=== PATIENT | female | born 1960 | race Caucasian/White ===

== ENCOUNTER → 2017-11-08 | Outpatient (REF) | payer BC ==
[2017-11-08 20:01] LABS: HEMATOCRIT 46.6 % (36.0-47.0); HEMOGLOBIN 15.2 g/dl (12.0-15.5); MEAN CORPUSCULAR HEMOGLOBIN 30.8 pg (27.0-33.0); MEAN CORPUSCULAR HGB CONC 32.6 g/dl (32.0-36.5); MEAN CORPUSCULAR VOLUME 94.5 fl (80.0-96.0); PLATELET COUNT, AUTOMATED 379 10^3/uL (150-450); RED BLOOD COUNT 4.93 10^6/uL (4.00-5.40); RED CELL DISTRIBUTION WIDTH 13.2 % (11.5-14.5); WHITE BLOOD COUNT 15.8 10^3/uL (4.0-10.0)
[2017-11-08 20:35] LABS: TOTAL 25(OH) VITAMIN D 38.6 NG/ML (30.0-100.0)
[2017-11-08 20:36] LABS: FOLATE 6.7 NG/ML; VITAMIN B12 LEVEL 648 PG/ML
[2017-11-08 20:42] LABS: ALBUMIN 4.1 GM/DL (3.2-5.2); ALBUMIN/GLOBULIN RATIO 1.32 (1.00-1.93); ALKALINE PHOSPHATASE 83 U/L (45-117); ALT/SGPT 22 U/L (12-78); ANION GAP 10 MEQ/L (8-16); AST/SGOT 9 U/L (7-37); BILIRUBIN,TOTAL 0.3 MG/DL (0.2-1.0); BLOOD UREA NITROGEN 8 MG/DL (7-18); CALCIUM LEVEL 9.3 MG/DL (8.5-10.1); CARBON DIOXIDE LEVEL 27 MEQ/L (21-32); CHLORIDE LEVEL 104 MEQ/L (98-107); CREATININE FOR GFR 0.71 MG/DL (0.55-1.30); FREE T4 1.08 NG/DL (0.76-1.46); GLOMERULAR FILTRATION RATE > 60.0 (>51); GLUCOSE, FASTING 100 MG/DL (70-100); POTASSIUM SERUM 3.9 MEQ/L (3.5-5.1); SODIUM LEVEL 141 MEQ/L (136-145); THYROID STIMULATING HORMONE 0.877 uIU/ML (0.358-3.740); TOTAL PROTEIN 7.2 GM/DL (6.4-8.2)
[2017-11-10 10:13] LABS: TISSUE TRANSGLUTAMINASE IgA <2 U/mL (0-3)
== END ==
LOC: M SFHCADAM 15:11
DX: K52.9 Noninfective gastroenteritis and colitis, unspecified (principal); F17.218 Nicotine dependence, cigarettes, with other nicotine-induced disorders; E03.9 Hypothyroidism, unspecified; F32.9 Major depressive disorder, single episode, unspecified; F10.10 Alcohol abuse, uncomplicated
CPT/HCPCS: 82746

== ENCOUNTER 2017-11-27 14:07 | Emergency (ER) | payer BC ==
[2017-11-27 15:33] LABS: BASO % 0.2 % (0.0-1.0); EOS # 0.1 10^3/uL (0.0-0.50); HEMATOCRIT 48.4 % (36.0-47.0); HEMOGLOBIN 16.1 g/dl (12.0-15.5); IMMATURE GRANULOCYTE % 0.7 % (0-3.0); LYMPH # 2.6 10^3/uL (1.5-4.5); LYMPH % 21.4 % (24.0-44.0); MEAN CORPUSCULAR HEMOGLOBIN 31.2 pg (27.0-33.0); MEAN CORPUSCULAR HGB CONC 33.3 g/dl (32.0-36.5); MEAN CORPUSCULAR VOLUME 93.8 fl (80.0-96.0); MONO # 0.8 10^3/uL (0.0-0.8); MONO % 6.3 % (0.0-5.0); NEUTROPHILS # 8.6 10^3/uL (1.8-7.7); NEUTROPHILS % 70.4 % (36.0-66.0); PLATELET COUNT, AUTOMATED 340 10^3/uL (150-450); RED BLOOD COUNT 5.16 10^6/uL (4.00-5.40); RED CELL DISTRIBUTION WIDTH 12.9 % (11.5-14.5); WHITE BLOOD COUNT 12.2 10^3/uL (4.0-10.0)
[2017-11-27 15:43] LABS: INR 0.99; PROTHROMBIN TIME 13.2 SECONDS (12.1-14.4)
[2017-11-27 15:44] LABS: PARTIAL THROMBOPLASTIN TIME 27.2 SECONDS (25.4-37.6)
[2017-11-27 15:47] LABS: ALBUMIN 4.3 GM/DL (3.2-5.2); ALBUMIN/GLOBULIN RATIO 1.34 (1.00-1.93); ALKALINE PHOSPHATASE 81 U/L (45-117); ALT/SGPT 24 U/L (12-78); ANION GAP 8 MEQ/L (8-16); AST/SGOT 16 U/L (7-37); BILIRUBIN,DIRECT 0.2 MG/DL (0.0-0.2); BILIRUBIN,TOTAL 0.6 MG/DL (0.2-1.0); BLOOD UREA NITROGEN 9 MG/DL (7-18); CALCIUM LEVEL 9.5 MG/DL (8.5-10.1); CARBON DIOXIDE LEVEL 28 MEQ/L (21-32); CHLORIDE LEVEL 102 MEQ/L (98-107); CK-MB VALUE MASS < 1.0 NG/ML (<3.6); CPK CREATINE PHOSPHOKINASE 58 U/L (26-192); CREATININE FOR GFR 0.72 MG/DL (0.55-1.30); FREE T4 1.38 NG/DL (0.76-1.46); GLOMERULAR FILTRATION RATE > 60.0 (>51); GLUCOSE, FASTING 113 MG/DL (70-100); MB/CK RELATIVE INDEX 1.72 (< OR =4); NT-PRO BNP 33 PG/ML (<125); POTASSIUM SERUM 3.6 MEQ/L (3.5-5.1); SODIUM LEVEL 138 MEQ/L (136-145); TOTAL PROTEIN 7.5 GM/DL (6.4-8.2); TROPONIN I < 0.02 NG/ML (< 0.10)
[2017-11-27 15:56] LABS: D-DIMER QUANT < 270.0 ng/ml (<500)
[2017-11-27 17:11] LABS: CPK CREATINE PHOSPHOKINASE 48 U/L (26-192); TROPONIN I < 0.02 NG/ML (< 0.10)
[2017-11-27 17:12] LABS: CK-MB VALUE MASS < 1.0 NG/ML (<3.6); MB/CK RELATIVE INDEX 2.08 (< OR =4)
== END 2017-11-27 18:34 | disposition home or self-care (01) ==
LOC: M ED 14:07
DX: R07.9 Chest pain, unspecified (principal); F41.9 Anxiety disorder, unspecified; F32.9 Major depressive disorder, single episode, unspecified; E03.9 Hypothyroidism, unspecified; J44.9 Chronic obstructive pulmonary disease, unspecified; F17.210 Nicotine dependence, cigarettes, uncomplicated; Z91.048 Other nonmedicinal substance allergy status
CPT/HCPCS: 71046

== ENCOUNTER → 2018-05-12 | Outpatient (REF) | payer BC | LOC: M LAB REF 12:25 | PROVIDERS: ATTEND Physician Assistant Medical | DX: J02.9 Acute pharyngitis, unspecified (principal) ==

== ENCOUNTER 2018-12-13 10:33 | Day surgery (SDC) | payer OTHER ==
[~2018-12-13] VITALS: Ht 160 cm; Wt 61.7 kg
[~2018-12-13 10:33] MED LIST: ACETAMINOPHEN 325 MG TAB PO PRN; ADV100INH INH; BALANCED SALT IRRIGATION SOLUTION 500ML BAG (FOR OR EYE MACHINE) As Ordered ONE; BSS with VANC/TOB/EPI for EYE CASES IR ONE; CEFUROXIME 1MG/0.1ML INTRACAMERAL INJ As Ordered ONE; CYCLOPENTOLATE 2% OPHTH SOLN 2ML BTL OD ONE; HEALON DUET PRO(HEALON 10MG/ML 0.55ML & HEALON ENDOCOAT 30MG/ML 0.85ML) As Ordered ONE; LEVO112T2 PO; LIDOCAINE 1% SDV 5 ML VIAL As Ordered ONE; LIDOCAINE 3.5 % 1ML OPHTH TOPICAL GEL OU ONE; MIDAZOLAM INJ 2 MG/2 ML VIAL (J2250) As Ordered ONE; OFLOXACIN 0.3 % (OCUFLOX) OPTH SOL 5ML OD ONE; PHENYLEPHRINE 2.5% OPHTH SOL 2ML OD ONE; PHENYLEPHRINE HCL 10 % OPHTH. SOL 5ML OD PRN; POVIDONE-IODINE 5% OPHTH PREP SOL 30ML As Ordered ONE; PROAAER10 INH; PROPARACAINE 0.5% OPHTH SOL 15ML OD PRN; TROPICAMIDE 1% OPHTH SOLN 2ML OD ONE; VITA1CAP25 PO; fentaNYL 100 MCG/2 ML INJECTION (J3010) As Ordered ONE
[2018-12-13] MEDS ORDERED: AcetaZOLAMIDE 500 MG ER CAP As Ordered ONE (11:47)
[2018-12-13] MEDS ORDERED: PROPARACAINE 0.5% OPHTH SOL 15ML As Ordered ONE (11:48)
[2018-12-13 11:55] VITALS: BP 145/70
[2018-12-13] MEDS ORDERED: AcetaZOLAMIDE 500 MG ER CAP PO ONE (12:15)
[2018-12-13] MEDS ORDERED: TRIMETHOBENZAMIDE 300 MG CAP PO PRN (12:15)
[2018-12-13] MEDS ORDERED: KETOROLAC 0.5% OPHTH SOLN OD ONE (12:15)
[2018-12-13] MEDS ORDERED: ONDANSETRON 4MG/2ML VIAL (J2405) IV PRN (12:15)
--- NOTE | 2018-12-13 12:35 | RO ---
DATE OF PROCEDURE: 12/13/2018 PREPROCEDURE DIAGNOSIS: Age related nuclear cataract, right eye. POSTPROCEDURE DIAGNOSIS: Age related nuclear cataract, right eye. PROCEDURE: Phacoemulsification and posterior chamber intraocular lens implantation of the right eye. The lens used was AU00T0, 26.0 diopter. SURGEON: Jaylin Villanueva MD [employer]: ANESTHESIA: Topical with sedation. DESCRIPTION OF PROCEDURE: The patient was prepped and draped in the usual fashion. A lid speculum was placed between the lids. The eye was fixated. A stab incision was made to the anterior chamber, and 1% nonpreserved lidocaine was instilled. Then, viscoelastic was instilled. The eye was re-fixated. A 2.75 mm sapphire keratome was used to make a clear corneal temporal limbal incision. Capsulorrhexis was begun with a 30-gauge bent needle and then carried out in a circular fashion with capsulorrhexis forceps. The lens was hydrodissected, and then the phacoemulsification unit was used to make a groove in the nucleus in two meridians. The nucleus was then cracked into four quadrants. Each quadrant was removed with the phacoemulsification unit. Any remaining cortex was removed with the irrigation and aspiration (I and A) unit. Capsular bag was refilled with viscoelastic. A posterior chamber intraocular lens was placed in the capsular bag without difficulty. Any remaining viscoelastic was removed with the I and A unit. The wound was hydrated, and Miochol and cefuroxime were instilled into the anterior chamber. The patient tolerated the procedure well and went to the recovery room in stable condition.
== END 2018-12-13 12:05 | disposition home or self-care (01) ==
LOC: M SDC 10:33
PROVIDERS: ATTEND Ophthalmology
DX: H25.11 Age-related nuclear cataract, right eye (principal); E03.9 Hypothyroidism, unspecified; J44.9 Chronic obstructive pulmonary disease, unspecified; Z79.899 Other long term (current) drug therapy; Z79.51 Long term (current) use of inhaled steroids; F17.210 Nicotine dependence, cigarettes, uncomplicated
CPT/HCPCS: 66984; 92015; J2250; J3010; V2632

== ENCOUNTER → 2019-10-29 | Outpatient (REF) | payer OTHER ==
[~2019-10-29] MED LIST changes: -ACETAMINOPHEN 325 MG TAB PO PRN; -BALANCED SALT IRRIGATION SOLUTION 500ML BAG (FOR OR EYE MACHINE) As Ordered ONE; -BSS with VANC/TOB/EPI for EYE CASES IR ONE; -CEFUROXIME 1MG/0.1ML INTRACAMERAL INJ As Ordered ONE; -CYCLOPENTOLATE 2% OPHTH SOLN 2ML BTL OD ONE; -HEALON DUET PRO(HEALON 10MG/ML 0.55ML & HEALON ENDOCOAT 30MG/ML 0.85ML) As Ordered ONE; -LIDOCAINE 1% SDV 5 ML VIAL As Ordered ONE; -LIDOCAINE 3.5 % 1ML OPHTH TOPICAL GEL OU ONE; -MIDAZOLAM INJ 2 MG/2 ML VIAL (J2250) As Ordered ONE; -OFLOXACIN 0.3 % (OCUFLOX) OPTH SOL 5ML OD ONE; -PHENYLEPHRINE 2.5% OPHTH SOL 2ML OD ONE; -PHENYLEPHRINE HCL 10 % OPHTH. SOL 5ML OD PRN; -POVIDONE-IODINE 5% OPHTH PREP SOL 30ML As Ordered ONE; -PROPARACAINE 0.5% OPHTH SOL 15ML OD PRN; -TROPICAMIDE 1% OPHTH SOLN 2ML OD ONE; -fentaNYL 100 MCG/2 ML INJECTION (J3010) As Ordered ONE
[2019-10-29 13:31] LABS: BASO # 0.1 10^3/uL (0.0-0.2); BASO % 0.4 % (0.0-1.0); EOS # 0.1 10^3/uL (0.0-0.5); EOS % 0.6 % (0.0-3.0); HEMATOCRIT 49.8 % (36.0-47.0); HEMOGLOBIN 16.4 g/dl (12.0-15.5); LYMPH # 3.1 10^3/uL (1.5-5.0); LYMPH % 23.4 % (24.0-44.0); MEAN CORPUSCULAR HEMOGLOBIN 31.2 pg (27.0-33.0); MEAN CORPUSCULAR HGB CONC 32.9 g/dl (32.0-36.5); MEAN CORPUSCULAR VOLUME 94.7 fl (80.0-96.0); MONO # 0.7 10^3/uL (0.0-0.8); MONO % 5.4 % (0.0-5.0); NEUTROPHILS # 9.1 10^3/uL (1.5-8.5); NEUTROPHILS % 69.7 % (36.0-66.0); PLATELET COUNT, AUTOMATED 437 10^3/uL (150-450); RED BLOOD COUNT 5.26 10^6/uL (4.00-5.40); WHITE BLOOD COUNT 13.1 10^3/uL (4.0-10.0)
[2019-10-29 14:37] LABS: ALBUMIN 4.5 GM/DL (3.2-5.2); ALT/SGPT 26 U/L (12-78); BILIRUBIN,TOTAL 0.5 MG/DL (0.2-1.0); BLOOD UREA NITROGEN 9 MG/DL (7-18); CALCIUM LEVEL 10.1 MG/DL (8.5-10.1); CARBON DIOXIDE LEVEL 28 MEQ/L (21-32); CHLORIDE LEVEL 102 MEQ/L (98-107); CHOLESTEROL LEVEL 228 MG/DL (<200); CHOLESTEROL RISK RATIO 3.123 (<5); CREATININE FOR GFR 0.68 MG/DL (0.55-1.30); GLOMERULAR FILTRATION RATE > 60.0 (>51); GLUCOSE, FASTING 74 MG/DL (70-100); HDL CHOLESTEROL 73 MG/DL (>40); LDL CHOLESTEROL 121 MG/DL (<100); NON-HDL-C 155 MG/DL; POTASSIUM SERUM 4.5 MEQ/L (3.5-5.1); PROLACTIN 2.3 NG/ML; SODIUM LEVEL 137 MEQ/L (136-145); TOTAL 25(OH) VITAMIN D 75.9 NG/ML (30.0-100.0); TOTAL PROTEIN 8.1 GM/DL (6.4-8.2); TRIGLYCERIDES LEVEL 169 MG/DL (<150)
== END ==
LOC: M SFHCADAM 09:58
PROVIDERS: ATTEND Physician Assistant Medical
DX: N64.4 Mastodynia (principal); N64.3 Galactorrhea not associated with childbirth; E03.9 Hypothyroidism, unspecified; E78.2 Mixed hyperlipidemia; E55.9 Vitamin D deficiency, unspecified

== ENCOUNTER → 2019-11-15 | Outpatient (CLI) | payer OTHER ==
--- NOTE | 2019-11-15 08:12 | REPMRS ---
Patient History The patient states she had a clinical breast exam in October 2019. Patient is postmenopausal. Family history of breast cancer at age 46 in sister. Benign excisional biopsy of the right breast, 1982. Took hormonal contraceptives for 12 years. Took unspecified hormones for 1 year. Diagnostic Bilateral Mammo: November 15, 2019 - Exam #: [id number] Bilateral CC and MLO view(s) were taken. Technologist: Radha Rocha, Technologist Prior study comparison: April 13, 2016, digital woman screen mammo performed at [facility]. November 11, 2011, bilateral bilat screen digital mammo, performed at [facility] September 30, 2009, bilateral screening mammogram, performed at [facility]. FINDINGS: The breast tissue is heterogeneously dense. This may lower the sensitivity of mammography. The Volpara volumetric breast density category is: C. There is a moderate amount of heterogeneously dense fibroglandular tissue which is fairly symmetric. There is no interval development of dominant mass, architectural distortion, or grouped microcalcification typical of malignancy. There has been no change in the appearance of the mammogram from the prior studies. 3-D tomosynthesis shows no additional findings. Assessment: BI-RADS/ACR category 1 mammogram. Negative Mammogram. Recommendation Routine screening mammogram of both breasts in 1 year (for women over age 40). This patient's Lifetime Breast Cancer RIsk is estimated at 12.7 %. This mammogram was interpreted with the aid of an FDA-approved computer-aided dectection system. Electronically Signed By: Kj Chavez MD 11/15/19 08
== END ==
LOC: M WHC 06:47
PROVIDERS: ATTEND Physician Assistant Medical
DX: N64.4 Mastodynia (principal); N64.3 Galactorrhea not associated with childbirth; Z80.3 Family history of malignant neoplasm of breast
CPT/HCPCS: 77066; G0279

== ENCOUNTER → 2021-06-29 | Outpatient (REF) | payer OTHER | LOC: M SFHCADAM 09:06 | PROVIDERS: ATTEND Physician Assistant Medical | DX: Z12.11 Encounter for screening for malignant neoplasm of colon (principal); Z12.12 Encounter for screening for malignant neoplasm of rectum; E03.9 Hypothyroidism, unspecified ==

== ENCOUNTER → 2022-01-06 | Outpatient (REF) | payer OTHER ==
[2022-01-06 14:45] LABS: FREE T4 1.43 NG/DL (0.76-1.46); THYROID STIMULATING HORMONE 0.239 uIU/ML (0.358-3.740)
== END ==
LOC: M SFHCADAM 09:50
PROVIDERS: ATTEND Physician Assistant Medical
DX: E03.9 Hypothyroidism, unspecified (principal)

== ENCOUNTER → 2022-01-27 | Outpatient (CLI) | payer OTHER | LOC: M WHC 12:31 | PROVIDERS: ATTEND Physician Assistant Medical | DX: R13.13 Dysphagia, pharyngeal phase (principal); R09.89 Other specified symptoms and signs involving the circulatory and respiratory systems ==

== ENCOUNTER → 2022-02-19 | Outpatient (REF) | payer OTHER ==
[2022-02-19 14:27] LABS: C REACTIVE PROTEIN QUANTITATIV < 0.30 MG/DL (0.00-0.30); COMPLEMENT C3 98 MG/DL (90-180); COMPLEMENT C4 26 MG/DL (10-40); FREE T4 1.55 NG/DL (0.76-1.46); RHEUMATOID FACTOR QUANT < 10.0 IU/ML (<15.0); THYROID STIMULATING HORMONE 0.707 uIU/ML (0.358-3.740)
[2022-02-19 14:56] LABS: TOTAL 25(OH) VITAMIN D 62.3 NG/ML (30.0-100.0)
[2022-02-19 14:59] LABS: THYROID PEROXIDASE ANTIBODY 727.9 U/ML (<60.0)
== END ==
LOC: M SFHCDERM 09:17
PROVIDERS: ATTEND Physician Assistant Medical
DX: E03.9 Hypothyroidism, unspecified (principal); M25.50 Pain in unspecified joint

== ENCOUNTER → 2022-03-11 | Outpatient (REF) | payer OTHER ==
[2022-03-11 14:22] LABS: BASO % 0.2 % (0.0-1.0); EOS % 0.3 % (0.0-3.0); HEMATOCRIT 48.2 % (36.0-47.0); HEMOGLOBIN 16.2 g/dl (12.0-15.5); LYMPH # 2.2 10^3/uL (1.5-5.0); LYMPH % 24.7 % (24.0-44.0); MEAN CORPUSCULAR HEMOGLOBIN 30.4 pg (27.0-33.0); MEAN CORPUSCULAR HGB CONC 33.6 g/dl (32.0-36.5); MEAN CORPUSCULAR VOLUME 90.4 fl (80.0-96.0); MONO # 0.8 10^3/uL (0.0-0.8); MONO % 9.1 % (2.0-8.0); NEUTROPHILS # 5.8 10^3/uL (1.5-8.5); NEUTROPHILS % 65.4 % (36.0-66.0); PLATELET COUNT, AUTOMATED 430 10^3/uL (150-450); RED BLOOD COUNT 5.33 10^6/uL (4.00-5.40); WHITE BLOOD COUNT 8.8 10^3/uL (4.0-10.0)
[2022-03-11 14:51] LABS: HEMOGLOBIN A1c 5.5 %
[2022-03-11 15:37] LABS: ALBUMIN 4.1 GM/DL (3.2-5.2); ALT/SGPT 23 U/L (12-78); BILIRUBIN,TOTAL 0.8 MG/DL (0.2-1.0); BLOOD UREA NITROGEN 4 MG/DL (7-18); CALCIUM LEVEL 9.7 MG/DL (8.8-10.2); CARBON DIOXIDE LEVEL 28 MEQ/L (21-32); CHLORIDE LEVEL 89 MEQ/L (98-107); CHOLESTEROL LEVEL 195 MG/DL (<200); CHOLESTEROL RISK RATIO 2.785 (<5); CREATININE FOR GFR 0.55 MG/DL (0.55-1.30); GLOMERULAR FILTRATION RATE > 60.0 (>45); GLUCOSE, FASTING 108 MG/DL (70-100); HDL CHOLESTEROL 70 MG/DL (>40); LDL CHOLESTEROL 108 MG/DL (<100); NON-HDL-C 125 MG/DL; POTASSIUM SERUM 4.1 MEQ/L (3.5-5.1); SODIUM LEVEL 127 MEQ/L (136-145); TOTAL PROTEIN 7.1 GM/DL (6.4-8.2); TRIGLYCERIDES LEVEL 87 MG/DL (<150)
[2022-03-11 16:01] LABS: VITAMIN B12 LEVEL 333 PG/ML (247-911)
== END ==
LOC: M SFHCADAM 11:27
PROVIDERS: ATTEND Physician Assistant Medical
DX: R20.2 Paresthesia of skin (principal); E03.9 Hypothyroidism, unspecified

== ENCOUNTER → 2022-04-21 | Outpatient (REF) | payer OTHER ==
[2022-04-21 17:13] LABS: FREE T4 1.71 NG/DL (0.89-1.76); THYROID STIMULATING HORMONE 14.724 uIU/ML (0.55-4.78)
== END ==
LOC: M SFHCADAM 13:23
PROVIDERS: ATTEND Physician Assistant Medical
DX: E03.9 Hypothyroidism, unspecified (principal)

== ENCOUNTER → 2022-05-26 | Outpatient (CLI) | payer OTHER | LOC: M PLARAD 09:24 | PROVIDERS: ATTEND Physician Assistant Medical | DX: R91.1 Solitary pulmonary nodule (principal) | CPT/HCPCS: 78815; A9552 ==

== ENCOUNTER → 2022-05-27 | Outpatient (CLI) | payer OTHER ==
[~2022-05-27] MED LIST changes: +ALBU2.5V10; +ALBU8.5H; +FOLI1TAB11; +GABA-282; +OMEP40CA5
== END ==
LOC: M LABSMTC 11:37
PROVIDERS: ATTEND Anesthesiology
DX: Z01.818 Encounter for other preprocedural examination (principal); Z11.52 Encounter for screening for COVID-19

== ENCOUNTER 2022-05-31 10:34 | Day surgery (SDC) | payer OTHER ==
[~2022-05-31] VITALS: Ht 162.6 cm; Wt 43.7 kg
[~2022-05-31 10:34] MED LIST changes: -ALBU2.5V10; +ALBU2.5V10 NEB; -ALBU8.5H; +ALBU8.5H INH; -FOLI1TAB11; +FOLI1TAB11 PO; -GABA-282; +GABA-282 PO; +NS 1,000 ML IV ONE; -OMEP40CA5; +OMEP40CA5 PO
[2022-05-31] MEDS ORDERED: propofoL 200 MG/20 ML VIAL As Ordered ONE (12:19)
[2022-05-31] MEDS ORDERED: LIDOCAINE 2% 100MG/5ML SDV (FOR ANES.) As Ordered ONE (12:19)
[2022-05-31 13:06] VITALS: BP 125/64
[2022-06-07] MEDS ORDERED: LEVO88TA3 PO (08:03)
[2022-06-07] MEDS ORDERED: KP BTAB PO (08:03)
== END 2022-05-31 13:26 | disposition home or self-care (01) ==
LOC: M OPP 10:34
PROVIDERS: ATTEND Internal Medicine Gastroenterology
DX: D12.1 Benign neoplasm of appendix (principal); D12.2 Benign neoplasm of ascending colon; D12.7 Benign neoplasm of rectosigmoid junction; K64.4 Residual hemorrhoidal skin tags; K64.8 Other hemorrhoids; K22.89 Other specified disease of esophagus; K29.70 Gastritis, unspecified, without bleeding; Z79.51 Long term (current) use of inhaled steroids; Z79.890 Hormone replacement therapy; Z79.891 Long term (current) use of opiate analgesic; Z79.899 Other long term (current) drug therapy; E03.9 Hypothyroidism, unspecified; F41.9 Anxiety disorder, unspecified

== ENCOUNTER → 2022-05-31 | Outpatient (CLI) | payer OTHER ==
[2022-05-31 11:37] LABS: BASO % 0.3 % (0.0-1.0); EOS # 0.1 10^3/uL (0.0-0.5); EOS % 0.7 % (0.0-3.0); HEMATOCRIT 43.5 % (36.0-47.0); HEMOGLOBIN 14.8 g/dl (12.0-15.5); LYMPH % 20.8 % (24.0-44.0); MEAN CORPUSCULAR HEMOGLOBIN 30.1 pg (27.0-33.0); MEAN CORPUSCULAR VOLUME 88.4 fl (80.0-96.0); MONO # 0.7 10^3/uL (0.0-0.8); MONO % 6.9 % (2.0-8.0); NEUTROPHILS # 6.8 10^3/uL (1.5-8.5); PLATELET COUNT, AUTOMATED 500 10^3/uL (150-450); RED BLOOD COUNT 4.92 10^6/uL (4.00-5.40); WHITE BLOOD COUNT 9.5 10^3/uL (4.0-10.0)
[2022-05-31 12:12] LABS: OSMOLALITY SERUM 272 MOSM/KG (280-301)
[2022-05-31 13:06] LABS: BLOOD UREA NITROGEN 7 MG/DL (9-23); CARBON DIOXIDE LEVEL 34 MMOL/L (20-31); CHLORIDE LEVEL 90 MMOL/L (98-107); CREATININE FOR GFR 0.59 MG/DL (0.55-1.30); GLOMERULAR FILTRATION RATE > 60.0 (>45); GLUCOSE, FASTING 114 MG/DL (74-106); POTASSIUM SERUM 2.7 MMOL/L (3.5-5.1); SODIUM LEVEL 131 MMOL/L (136-145)
== END ==
LOC: M LAB 09:52
PROVIDERS: ATTEND Internal Medicine Gastroenterology
DX: R59.1 Generalized enlarged lymph nodes (principal)

== ENCOUNTER → 2022-06-01 | Outpatient (CLI) | payer OTHER ==
[~2022-06-01] MED LIST changes: +ALBU2.5V10; -ALBU2.5V10 NEB; +ALBU8.5H; -ALBU8.5H INH; +FOLI1TAB11; -FOLI1TAB11 PO; +GABA-282; -GABA-282 PO; -NS 1,000 ML IV ONE; +OMEP40CA5; -OMEP40CA5 PO
[2022-06-01 11:39] LABS: MAGNESIUM LEVEL 1.6 MG/DL (1.8-2.4)
[2022-06-01 11:46] LABS: POTASSIUM SERUM 3.3 MMOL/L (3.5-5.1)
[2022-06-01 12:18] LABS: CREATININE,RANDOM URINE 54.6 MG/DL
== END ==
LOC: M LAB 09:47
PROVIDERS: ATTEND Internal Medicine Gastroenterology
DX: E87.6 Hypokalemia (principal)

== ENCOUNTER 2022-06-07 09:14 | Inpatient (IN) | payer OTHER ==
[~2022-06-07] VITALS: Ht 162.6 cm; Wt 43.6 kg
[~2022-06-07 09:14] MED LIST changes: -ALBU2.5V10; +ALBU2.5V10 NEB; -ALBU8.5H; +ALBU8.5H INH; -FOLI1TAB11; +FOLI1TAB11 PO; -GABA-282; +GABA-282 PO; +KP BTAB PO; +LEVO88TA3 PO; -OMEP40CA5; +OMEP40CA5 PO
[2022-06-07 10:33] LABS: BASO % 0.1 % (0.0-1.0); EOS % 0.4 % (0.0-3.0); HEMATOCRIT 43.4 % (36.0-47.0); HEMOGLOBIN 14.9 g/dl (12.0-15.5); LYMPH # 1.7 10^3/uL (1.5-5.0); LYMPH % 17.1 % (24.0-44.0); MEAN CORPUSCULAR HEMOGLOBIN 30.6 pg (27.0-33.0); MEAN CORPUSCULAR HGB CONC 34.3 g/dl (32.0-36.5); MEAN CORPUSCULAR VOLUME 89.1 fl (80.0-96.0); MONO # 0.7 10^3/uL (0.0-0.8); NEUTROPHILS # 7.3 10^3/uL (1.5-8.5); NEUTROPHILS % 74.9 % (36.0-66.0); PLATELET COUNT, AUTOMATED 457 10^3/uL (150-450); RED BLOOD COUNT 4.87 10^6/uL (4.00-5.40); WHITE BLOOD COUNT 9.7 10^3/uL (4.0-10.0)
[2022-06-07 10:45] LABS: INR 1.03; PROTHROMBIN TIME 13.7 SECONDS (12.5-14.5)
[2022-06-07 10:46] LABS: PARTIAL THROMBOPLASTIN TIME 26.7 SECONDS (24.8-34.2)
[2022-06-07 10:56] LABS: LIPASE 44 U/L (12-53)
[2022-06-07 10:57] LABS: CK-MB VALUE MASS < 1.0 NG/ML (<3.6); MAGNESIUM LEVEL 1.7 MG/DL (1.8-2.4)
[2022-06-07 10:58] LABS: ALBUMIN 3.7 G/DL (3.2-5.2); ALKALINE PHOSPHATASE 67 U/L (46-116); ALT/SGPT 28 U/L (7.0-40); AST/SGOT 18 U/L (<34); BILIRUBIN,TOTAL 0.7 MG/DL (0.3-1.2); BLOOD UREA NITROGEN 7 MG/DL (9-23); CALCIUM LEVEL 9.6 MG/DL (8.3-10.6); CARBON DIOXIDE LEVEL 27 MMOL/L (20-31); CHLORIDE LEVEL 92 MMOL/L (98-107); CREATININE FOR GFR 0.49 MG/DL (0.55-1.30); GLOMERULAR FILTRATION RATE > 60.0 (>45); GLUCOSE, FASTING 120 MG/DL (74-106); POTASSIUM SERUM 4.3 MMOL/L (3.5-5.1); SODIUM LEVEL 126 MMOL/L (136-145); TOTAL PROTEIN 6.3 G/DL (5.7-8.2)
[2022-06-07 10:59] LABS: BILIRUBIN,DIRECT 0.3 MG/DL (<0.4); CPK CREATINE PHOSPHOKINASE 26 U/L (34-145); MB/CK RELATIVE INDEX 3.84 (< OR =4)
[2022-06-07 11:29] LABS: RSV AMPLIFICATION NEGATIVE (NEGATIVE)
[2022-06-07 12:31] LABS: PREALBUMIN 29.2 MG/DL (10.0-40.0)
[2022-06-07] MEDS ORDERED: MAG SULF 1GM/100ML (MAG RUN) 1 GM in IV 1 EA IV ONE (12:40)
[2022-06-07] MEDS ORDERED: B-1100TA2 PO (14:00)
[2022-06-07] MEDS ORDERED: ADV250INH INH (14:00)
[2022-06-07] MEDS ORDERED: POLY510P14 PO (14:00)
[2022-06-07] MEDS ORDERED: HOME MED LIST COMPLETE! XX SCH (14:05)
[2022-06-07] MEDS ORDERED: ISOVUE-370 76% 100ML VIAL As Ordered ONE (14:25)
[2022-06-07] MEDS ORDERED: ALBUTEROL 90 MCG/ACT 8GM HFA INHALER INH PRN (14:30)
[2022-06-07 16:08] LABS: C REACTIVE PROTEIN QUANTITATIV < 0.40 MG/DL (<1.0)
[2022-06-07 16:11] LABS: THYROID STIMULATING HORMONE 11.219 uIU/ML (0.55-4.78)
[2022-06-07] MEDS: NS 1,000 ML IV SCH (16:48)
[2022-06-07] MEDS: FOLIC ACID 1MG TAB PO SCH (16:48)
[2022-06-07] MEDS: GABAPENTIN 300 MG CAP PO SCH ×2 (16:48→21:03)
[2022-06-07] MEDS ORDERED: methylPREDNISolone 40MG 1ML VIAL IV SCH (17:00)
[2022-06-07 20:41] LABS: CREATININE,RANDOM URINE 35.8 MG/DL
[2022-06-07 20:46] VITALS: BP 131/81
[2022-06-07] MEDS: RAMELTEON 8 MG TAB (ROZEREM) PO PRN (21:03)
[2022-06-07] MEDS: IPRATROPIUM 0.5MG/ALBUTEROL 2.5MG INH SOL UD 3ML (DUONEB) NEB SCH (21:12)
[2022-06-07] MEDS: ADVAIR HFA 115/21MCG INHALER INH SCH (21:12)
[2022-06-08] MEDS: methylPREDNISolone 40MG 1ML VIAL IV SCH ×3 (00:10→16:17)
[2022-06-08] MEDS: IPRATROPIUM 0.5MG/ALBUTEROL 2.5MG INH SOL UD 3ML (DUONEB) NEB SCH ×4 (00:56→19:54)
[2022-06-08] MEDS: LEVOTHYROXINE 88MCG TABLET (0.088 MG) PO SCH (05:43)
[2022-06-08 06:00] VITALS: BP 137/78
[2022-06-08 06:05] LABS: BASO % 0.1 % (0.0-1.0); HEMATOCRIT 40.2 % (36.0-47.0); LYMPH # 0.5 10^3/uL (1.5-5.0); LYMPH % 4.7 % (24.0-44.0); MEAN CORPUSCULAR HEMOGLOBIN 30.9 pg (27.0-33.0); MEAN CORPUSCULAR HGB CONC 34.8 g/dl (32.0-36.5); MEAN CORPUSCULAR VOLUME 88.7 fl (80.0-96.0); MONO # 0.2 10^3/uL (0.0-0.8); MONO % 1.4 % (2.0-8.0); NEUTROPHILS # 9.8 10^3/uL (1.5-8.5); NEUTROPHILS % 93.2 % (36.0-66.0); PLATELET COUNT, AUTOMATED 456 10^3/uL (150-450); RED BLOOD COUNT 4.53 10^6/uL (4.00-5.40); WHITE BLOOD COUNT 10.6 10^3/uL (4.0-10.0)
[2022-06-08] MEDS: NS 1,000 ML IV SCH (06:22)
[2022-06-08 06:28] LABS: MAGNESIUM LEVEL 1.7 MG/DL (1.8-2.4)
[2022-06-08 06:29] LABS: BLOOD UREA NITROGEN 5 MG/DL (9-23); CALCIUM LEVEL 8.4 MG/DL (8.3-10.6); CARBON DIOXIDE LEVEL 24 MMOL/L (20-31); CHLORIDE LEVEL 97 MMOL/L (98-107); CORTISOL AM 8.3 UG/DL (4.3-22.4); CREATININE FOR GFR 0.38 MG/DL (0.55-1.30); GLOMERULAR FILTRATION RATE > 60.0 (>45); GLUCOSE, FASTING 154 MG/DL (74-106); POTASSIUM SERUM 4.4 MMOL/L (3.5-5.1); SODIUM LEVEL 127 MMOL/L (136-145)
[2022-06-08] MEDS ORDERED: MAG SULF 1GM/100ML (MAG RUN) 1 GM in IV 1 EA IV ONE (07:20)
[2022-06-08] MEDS ORDERED: NICOTINE 21MG/24HR 1 EA TRANSDERMAL TD PRN (07:35)
[2022-06-08] MEDS: ADVAIR HFA 115/21MCG INHALER INH SCH ×2 (08:18→19:55)
[2022-06-08] MEDS: GABAPENTIN 300 MG CAP PO SCH ×3 (08:49→20:32)
[2022-06-08] MEDS: FAMOTIDINE 20 MG TAB PO SCH (08:49)
[2022-06-08] MEDS: FOLIC ACID 1MG TAB PO SCH (08:49)
[2022-06-08] MEDS ORDERED: ENOXAPARIN 40MG/0.4ML SYRINGE (J1650 PER 10MG) SC SCH ×2 (09:00→21:00)
[2022-06-08] MEDS: MAGNESIUM SULFATE 8 MEQ in NS 100 ML IV SCH ×2 (10:47→16:15)
[2022-06-08] MEDS ORDERED: CETACAINE SPRAY 5GM As Ordered ONE (12:07)
[2022-06-08] MEDS ORDERED: EPINEPHrine 1MG/10ML SYRINGE 1.5IN As Ordered ONE (12:07)
[2022-06-08] MEDS ORDERED: THROMBIN 5,000 UNITS VIAL As Ordered ONE (12:07)
[2022-06-08] MEDS ORDERED: ETOMIDATE INJ 20MG/10ML VIAL As Ordered ONE (12:14)
[2022-06-08] MEDS ORDERED: MIDAZOLAM INJ 2MG/2ML VIAL As Ordered ONE (12:14)
[2022-06-08] MEDS ORDERED: LIDOCAINE 2% 100MG/5ML SDV (FOR ANES.) As Ordered ONE (12:14)
[2022-06-08] MEDS ORDERED: ROCURONIUM BROMIDE 50MG/5ML VIAL As Ordered ONE (12:14)
[2022-06-08] MEDS ORDERED: propofoL 200 MG/20 ML VIAL As Ordered ONE (12:14)
[2022-06-08] MEDS ORDERED: fentaNYL 100 MCG/2 ML INJECTION As Ordered ONE (12:15)
[2022-06-08] MEDS ORDERED: ONDANSETRON 4MG 2ML VIAL As Ordered ONE (12:41)
[2022-06-08] MEDS ORDERED: SUGAMMADEX SODIUM 500 MG/5 ML VIAL (BRIDION) As Ordered ONE (12:41)
[2022-06-08] MEDS ORDERED: ALBUTEROL 6.7GM INHALER **FOR ANES. CART/OMNICELL ONLY As Ordered ONE (12:57)
[2022-06-08] MEDS ORDERED: oxyCODONE 5MG TAB PO PRN (13:20)
[2022-06-08] MEDS ORDERED: LR 1,000 ML IV SCH (13:20)
[2022-06-08] MEDS ORDERED: fentaNYL 100 MCG/2 ML INJECTION IV PRN (13:20)
[2022-06-08] MEDS ORDERED: ONDANSETRON 4MG 2ML VIAL IV PRN (13:20)
[2022-06-08 14:00] VITALS: BP 148/79
[2022-06-08] MEDS ORDERED: MAG SULF 1GM/100ML (MAG RUN) 1 GM in IV 1 EA IV SCH (16:00)
[2022-06-08] MEDS ORDERED: MAGNESIUM SULFATE 8 MEQ in NS 100 ML IV SCH (16:00)
[2022-06-08 19:31] LABS: MAGNESIUM LEVEL 2.6 MG/DL (1.8-2.4)
[2022-06-08 19:32] LABS: BLOOD UREA NITROGEN 7 MG/DL (9-23); CALCIUM LEVEL 8.8 MG/DL (8.3-10.6); CARBON DIOXIDE LEVEL 24 MMOL/L (20-31); CHLORIDE LEVEL 98 MMOL/L (98-107); CREATININE FOR GFR 0.42 MG/DL (0.55-1.30); GLOMERULAR FILTRATION RATE > 60.0 (>45); GLUCOSE, FASTING 152 MG/DL (74-106); POTASSIUM SERUM 4.7 MMOL/L (3.5-5.1); SODIUM LEVEL 130 MMOL/L (136-145)
[2022-06-08] MEDS: RAMELTEON 8 MG TAB (ROZEREM) PO PRN (20:32)
[2022-06-08 22:00] VITALS: BP 138/76
[2022-06-09] MEDS: methylPREDNISolone 40MG 1ML VIAL IV SCH ×2 (00:14→08:58)
[2022-06-09] MEDS ORDERED: ACETAMINOPHEN TAB 650MG DOSE (2X325MG) PO PRN (03:55)
[2022-06-09] MEDS: LEVOTHYROXINE 88MCG TABLET (0.088 MG) PO SCH (05:48)
[2022-06-09 05:57] LABS: BASO % 0.1 % (0.0-1.0); HEMATOCRIT 38.5 % (36.0-47.0); HEMOGLOBIN 12.9 g/dl (12.0-15.5); LYMPH # 0.5 10^3/uL (1.5-5.0); MEAN CORPUSCULAR HEMOGLOBIN 30.6 pg (27.0-33.0); MEAN CORPUSCULAR HGB CONC 33.5 g/dl (32.0-36.5); MEAN CORPUSCULAR VOLUME 91.2 fl (80.0-96.0); MONO # 0.6 10^3/uL (0.0-0.8); MONO % 3.8 % (2.0-8.0); NEUTROPHILS # 14.1 10^3/uL (1.5-8.5); NEUTROPHILS % 92.6 % (36.0-66.0); PLATELET COUNT, AUTOMATED 453 10^3/uL (150-450); RED BLOOD COUNT 4.22 10^6/uL (4.00-5.40); WHITE BLOOD COUNT 15.2 10^3/uL (4.0-10.0)
[2022-06-09 06:00] VITALS: BP 138/80
[2022-06-09 06:08] LABS: BLOOD UREA NITROGEN 10 MG/DL (9-23); CALCIUM LEVEL 8.6 MG/DL (8.3-10.6); CARBON DIOXIDE LEVEL 26 MMOL/L (20-31); CHLORIDE LEVEL 98 MMOL/L (98-107); CREATININE FOR GFR 0.46 MG/DL (0.55-1.30); GLOMERULAR FILTRATION RATE > 60.0 (>45); GLUCOSE, FASTING 118 MG/DL (74-106); POTASSIUM SERUM 4.9 MMOL/L (3.5-5.1); SODIUM LEVEL 131 MMOL/L (136-145)
[2022-06-09] MEDS ORDERED: MIRALAX *UNIT DOSE* 17GM PACKET PO PRN (07:25)
[2022-06-09] MEDS: ADVAIR HFA 115/21MCG INHALER INH SCH (08:22)
[2022-06-09] MEDS: GABAPENTIN 300 MG CAP PO SCH (08:58)
[2022-06-09] MEDS: FOLIC ACID 1MG TAB PO SCH (08:58)
[2022-06-09] MEDS: FAMOTIDINE 20 MG TAB PO SCH (08:58)
[2022-06-09] MEDS ORDERED: NICO21PAT TD (10:57)
[2022-06-09] MEDS ORDERED: PRED20TA PO (10:57)
[2022-06-11] MEDS ORDERED: SENO8.6T10 PO (10:16)
[2022-06-11] MEDS ORDERED: OXYC1TAB23 PO (13:42)
== END 2022-06-09 12:43 | disposition home or self-care (01) | DRG 651 ==
LOC: M ED 09:14 → M ED INP 13:17 → CANRESERV 17:04 → ENRESERV 17:04 → M MSPAV 20:37
PROVIDERS: ADMIT Internal Medicine; ATTEND Internal Medicine
PROC: B246ZZZ Ultrasonography of Right and Left Heart (ICD-10-PCS; principal; 2022-06-07)
PROC: 0BB18ZX Excision of Trachea, Via Natural or Artificial Opening Endoscopic, Diagnostic (ICD-10-PCS; 2022-06-08)
PROC: 07B74ZX Excision of Thorax Lymphatic, Percutaneous Endoscopic Approach, Diagnostic (ICD-10-PCS; 2022-06-08 12:00)
DX: R59.0 Localized enlarged lymph nodes (principal); I31.39 Other pericardial effusion (noninflammatory); E22.2 Syndrome of inappropriate secretion of antidiuretic hormone; R64 Cachexia; C77.1 Secondary and unspecified malignant neoplasm of intrathoracic lymph nodes; E83.42 Hypomagnesemia; J44.9 Chronic obstructive pulmonary disease, unspecified; E03.9 Hypothyroidism, unspecified; I10 Essential (primary) hypertension; K21.9 Gastro-esophageal reflux disease without esophagitis; F17.210 Nicotine dependence, cigarettes, uncomplicated; Z74.01 Bed confinement status; G47.00 Insomnia, unspecified; R62.7 Adult failure to thrive; D72.829 Elevated white blood cell count, unspecified; Z66 Do not resuscitate; Z79.890 Hormone replacement therapy; Z79.899 Other long term (current) drug therapy; Z91.040 Latex allergy status; R91.8 Other nonspecific abnormal finding of lung field

== ENCOUNTER → 2022-06-11 | Outpatient (CLI) | payer OTHER ==
[~2022-06-11] MED LIST changes: +ADV250INH INH; +B-1100TA2 PO; +NICO21PAT TD; +ONDA-84 PO; +ONDA8TAB8 PO; +OXYC1TAB23 PO; +POLY510P14 PO; +PRED20TA PO; +PROC10TA5 PO; +SENO8.6T10 PO
[2022-06-11 09:06] LABS: HEMATOCRIT 45.4 % (36.0-47.0); HEMOGLOBIN 15.2 g/dl (12.0-15.5); MEAN CORPUSCULAR HEMOGLOBIN 30.9 pg (27.0-33.0); MEAN CORPUSCULAR HGB CONC 33.5 g/dl (32.0-36.5); MEAN CORPUSCULAR VOLUME 92.3 fl (80.0-96.0); PLATELET COUNT, AUTOMATED 509 10^3/uL (150-450); RED BLOOD COUNT 4.92 10^6/uL (4.00-5.40); WHITE BLOOD COUNT 16.5 10^3/uL (4.0-10.0)
[2022-06-11 09:31] LABS: BLOOD UREA NITROGEN 10 MG/DL (9-23); CALCIUM LEVEL 9.5 MG/DL (8.3-10.6); CARBON DIOXIDE LEVEL 29 MMOL/L (20-31); CHLORIDE LEVEL 94 MMOL/L (98-107); CREATININE FOR GFR 0.48 MG/DL (0.55-1.30); GLOMERULAR FILTRATION RATE > 60.0 (>45); GLUCOSE, FASTING 140 MG/DL (74-106); POTASSIUM SERUM 4.1 MMOL/L (3.5-5.1); SODIUM LEVEL 129 MMOL/L (136-145)
== END ==
LOC: M LAB 08:28
PROVIDERS: ATTEND Internal Medicine Medical Oncology
DX: R91.8 Other nonspecific abnormal finding of lung field (principal); Z79.899 Other long term (current) drug therapy

== ENCOUNTER → 2022-06-24 | Outpatient (CLI) | payer OTHER ==
[~2022-06-24] MED LIST changes: +DRON2.5C11 PO
== END ==
LOC: M ONCR 10:03
PROVIDERS: ATTEND General Practice
DX: C34.11 Malignant neoplasm of upper lobe, right bronchus or lung (principal); F17.218 Nicotine dependence, cigarettes, with other nicotine-induced disorders; E03.9 Hypothyroidism, unspecified; E55.9 Vitamin D deficiency, unspecified; F41.9 Anxiety disorder, unspecified; F32.A Depression, unspecified; J44.9 Chronic obstructive pulmonary disease, unspecified; I10 Essential (primary) hypertension; K21.9 Gastro-esophageal reflux disease without esophagitis; Z79.51 Long term (current) use of inhaled steroids; Z79.890 Hormone replacement therapy; Z79.899 Other long term (current) drug therapy; Z80.1 Family history of malignant neoplasm of trachea, bronchus and lung; Z80.3 Family history of malignant neoplasm of breast; Z91.040 Latex allergy status; Z92.21 Personal history of antineoplastic chemotherapy

== ENCOUNTER → 2022-08-10 | Outpatient (CLI) | payer OTHER ==
[~2022-08-10] MED LIST changes: +AMOX500T PO; +DRON5CAP13 PO; +OXYC7.5T3 PO
== END ==
LOC: M CARPUL 12:38
PROVIDERS: ATTEND Internal Medicine Pulmonary Disease
DX: J44.9 Chronic obstructive pulmonary disease, unspecified (principal)

== ENCOUNTER → 2022-08-12 | Outpatient (REF) | payer OTHER ==
[2022-08-12 13:34] LABS: FREE T4 1.42 NG/DL (0.89-1.76)
[2022-08-12 13:35] LABS: THYROID STIMULATING HORMONE 12.828 uIU/ML (0.55-4.78)
== END ==
LOC: M SFHCADAM 09:35
PROVIDERS: ATTEND Physician Assistant Medical
DX: E03.9 Hypothyroidism, unspecified (principal)

== ENCOUNTER → 2022-08-30 | Outpatient (CLI) | payer OTHER ==
[~2022-08-30] MED LIST changes: +DICL20GE TP; +GASTROGRAFIN SOLUTION 30ML As Ordered ONE; +ISOVUE-370 76% 100ML VIAL As Ordered ONE; +LEVO100T5 PO; +PREG25CA PO; +TREL1AER PO
== END ==
LOC: M RAD 11:37
PROVIDERS: ATTEND General Practice
DX: C34.11 Malignant neoplasm of upper lobe, right bronchus or lung (principal)

== ENCOUNTER → 2022-09-01 | Outpatient (CLI) | payer OTHER ==
[~2022-09-01] VITALS: Ht 162.6 cm; Wt 39.0 kg
[~2022-09-01] MED LIST changes: -GASTROGRAFIN SOLUTION 30ML As Ordered ONE; -ISOVUE-370 76% 100ML VIAL As Ordered ONE
[2022-09-01 09:24] VITALS: BP 146/90
== END ==
LOC: M PAL 09:16
PROVIDERS: ATTEND Nurse Practitioner Adult Health
DX: C34.00 Malignant neoplasm of unspecified main bronchus (principal); F41.9 Anxiety disorder, unspecified; J44.9 Chronic obstructive pulmonary disease, unspecified; E03.9 Hypothyroidism, unspecified; E55.9 Vitamin D deficiency, unspecified; K21.9 Gastro-esophageal reflux disease without esophagitis; I10 Essential (primary) hypertension; Z98.51 Tubal ligation status; Z80.1 Family history of malignant neoplasm of trachea, bronchus and lung; Z80.3 Family history of malignant neoplasm of breast; F17.200 Nicotine dependence, unspecified, uncomplicated; Z91.040 Latex allergy status; Z79.899 Other long term (current) drug therapy; Z79.891 Long term (current) use of opiate analgesic; G89.3 Neoplasm related pain (acute) (chronic); R53.83 Other fatigue; Z51.5 Encounter for palliative care; Z92.21 Personal history of antineoplastic chemotherapy

== ENCOUNTER → 2022-09-02 | Outpatient (CLI) | payer OTHER ==
[~2022-09-02] MED LIST changes: +PROHANCE 279.3MG/ML 15ML VIAL As Ordered ONE
== END ==
LOC: M RAD 10:52
PROVIDERS: ATTEND General Practice
DX: C34.11 Malignant neoplasm of upper lobe, right bronchus or lung (principal)
CPT/HCPCS: 70553; A9576

== ENCOUNTER → 2022-09-10 | Outpatient (CLI) | payer OTHER ==
[~2022-09-10] MED LIST changes: +CLAR10CA3 PO; +GABA-1171; +MAGN250T7 PO; +NYST-38 PO; +PREG50CA PO; -PROHANCE 279.3MG/ML 15ML VIAL As Ordered ONE; +SUPETAB56 PO
== END ==
LOC: M ONCR 10:54
PROVIDERS: ATTEND General Practice
DX: C34.11 Malignant neoplasm of upper lobe, right bronchus or lung (principal); F17.218 Nicotine dependence, cigarettes, with other nicotine-induced disorders; Z79.51 Long term (current) use of inhaled steroids; Z79.890 Hormone replacement therapy; Z79.899 Other long term (current) drug therapy; Z91.040 Latex allergy status; Z92.21 Personal history of antineoplastic chemotherapy

== ENCOUNTER → 2022-09-23 | Outpatient (CLI) | payer OTHER ==
[~2022-09-23] VITALS: Ht 162.6 cm; Wt 38.9 kg
[2022-09-23 09:47] VITALS: BP 130/80
== END ==
LOC: M PAL 09:40
PROVIDERS: ATTEND Nurse Practitioner Adult Health
DX: M79.2 Neuralgia and neuritis, unspecified (principal); Z85.118 Personal history of other malignant neoplasm of bronchus and lung; Z51.5 Encounter for palliative care; Z92.21 Personal history of antineoplastic chemotherapy; G89.3 Neoplasm related pain (acute) (chronic); Z79.891 Long term (current) use of opiate analgesic; Z79.890 Hormone replacement therapy; Z79.899 Other long term (current) drug therapy; R53.83 Other fatigue; R53.1 Weakness; R26.9 Unspecified abnormalities of gait and mobility; F17.210 Nicotine dependence, cigarettes, uncomplicated; Z85.3 Personal history of malignant neoplasm of breast; Z98.51 Tubal ligation status; Z80.3 Family history of malignant neoplasm of breast; Z80.1 Family history of malignant neoplasm of trachea, bronchus and lung; Z91.040 Latex allergy status

== ENCOUNTER → 2022-10-27 | Outpatient (CLI) | payer OTHER ==
[~2022-10-27] VITALS: Ht 162.6 cm; Wt 38.1 kg
[~2022-10-27] MED LIST changes: +METH5TA PO; +OXYC10TA3 PO
[2022-10-27 10:34] VITALS: BP 117/78; TEMP 97.8; O2SAT 92
== END ==
LOC: M PAL 09:46
PROVIDERS: ATTEND Nurse Practitioner Adult Health
DX: C34.00 Malignant neoplasm of unspecified main bronchus (principal); F41.9 Anxiety disorder, unspecified; J44.9 Chronic obstructive pulmonary disease, unspecified; E03.9 Hypothyroidism, unspecified; E55.9 Vitamin D deficiency, unspecified; F17.200 Nicotine dependence, unspecified, uncomplicated; K21.9 Gastro-esophageal reflux disease without esophagitis; I10 Essential (primary) hypertension; G89.3 Neoplasm related pain (acute) (chronic); M79.642 Pain in left hand; M79.641 Pain in right hand; Z51.5 Encounter for palliative care; Z98.51 Tubal ligation status; Z80.1 Family history of malignant neoplasm of trachea, bronchus and lung; Z80.3 Family history of malignant neoplasm of breast; Z91.040 Latex allergy status; Z79.899 Other long term (current) drug therapy; Z79.891 Long term (current) use of opiate analgesic; R53.83 Other fatigue; Z92.21 Personal history of antineoplastic chemotherapy

== ENCOUNTER → 2022-11-01 | Outpatient (CLI) | payer OTHER ==
[~2022-11-01] MED LIST changes: +LYRI75CA PO; +MAGN250T11 PO
== END ==
LOC: M CARPUL 10:31
PROVIDERS: ATTEND Internal Medicine Pulmonary Disease
DX: J44.9 Chronic obstructive pulmonary disease, unspecified (principal)

== ENCOUNTER → 2022-11-03 | Outpatient (CLI) | payer OTHER | LOC: M PAL 09:16 | PROVIDERS: ATTEND Nurse Practitioner Adult Health | DX: C34.90 Malignant neoplasm of unspecified part of unspecified bronchus or lung (principal); Z92.21 Personal history of antineoplastic chemotherapy; Z51.5 Encounter for palliative care; G89.3 Neoplasm related pain (acute) (chronic); G62.0 Drug-induced polyneuropathy; Z79.1 Long term (current) use of non-steroidal anti-inflammatories (NSAID); Z79.891 Long term (current) use of opiate analgesic; Z79.899 Other long term (current) drug therapy; F17.210 Nicotine dependence, cigarettes, uncomplicated; R53.83 Other fatigue; R53.1 Weakness; R26.9 Unspecified abnormalities of gait and mobility; I35.0 Nonrheumatic aortic (valve) stenosis; I31.39 Other pericardial effusion (noninflammatory); Z80.3 Family history of malignant neoplasm of breast; Z80.1 Family history of malignant neoplasm of trachea, bronchus and lung; Z91.040 Latex allergy status; Z79.890 Hormone replacement therapy; Z79.51 Long term (current) use of inhaled steroids ==

== ENCOUNTER 2022-11-05 17:55 | Inpatient (IN) | payer OTHER ==
[~2022-11-05] VITALS: Ht 162.6 cm; Wt 37.7 kg
[~2022-11-05 17:55] MED LIST changes: -MAGN250T11 PO
[2022-11-05] MEDS ORDERED: diazePAM 10MG/2ML SYRINGE IV ONE (19:25)
[2022-11-05] MEDS ORDERED: ACETAMINOPHEN 1000MG 100ML IV BAG IV ONE (19:25)
[2022-11-05 20:17] LABS: BASO % 0.2 % (0.0-1.0); EOS # 0.1 10^3/uL (0.0-0.5); EOS % 0.6 % (0.0-3.0); HEMATOCRIT 38.5 % (36.0-47.0); HEMOGLOBIN 12.8 g/dl (12.0-15.5); LYMPH # 1.6 10^3/uL (1.5-5.0); LYMPH % 14.5 % (24.0-44.0); MEAN CORPUSCULAR HGB CONC 33.2 g/dl (32.0-36.5); MEAN CORPUSCULAR VOLUME 90.4 fl (80.0-96.0); MONO # 0.6 10^3/uL (0.0-0.8); MONO % 5.7 % (2.0-8.0); NEUTROPHILS # 8.6 10^3/uL (1.5-8.5); NEUTROPHILS % 78.6 % (36.0-66.0); PLATELET COUNT, AUTOMATED 340 10^3/uL (150-450); RED BLOOD COUNT 4.26 10^6/uL (4.00-5.40); WHITE BLOOD COUNT 10.9 10^3/uL (4.0-10.0)
[2022-11-05 20:47] LABS: BLOOD UREA NITROGEN 6 MG/DL (9-23); CALCIUM LEVEL 8.7 MG/DL (8.3-10.6); CARBON DIOXIDE LEVEL 29 MMOL/L (20-31); CHLORIDE LEVEL 105 MMOL/L (98-107); CREATININE FOR GFR 0.53 MG/DL (0.55-1.30); GLOMERULAR FILTRATION RATE > 60.0 (>45); GLUCOSE, FASTING 121 MG/DL (74-106); MAGNESIUM LEVEL 1.6 MG/DL (1.8-2.4); POTASSIUM SERUM 4.1 MMOL/L (3.5-5.1); SODIUM LEVEL 139 MMOL/L (136-145)
[2022-11-05] MEDS ORDERED: MAG SULF 1GM/100ML (MAG RUN) 1 GM in IV 1 EA IV ONE (20:55)
[2022-11-05 21:04] LABS: RSV AMPLIFICATION NEGATIVE (NEGATIVE)
[2022-11-05] MEDS ORDERED: IPRATROPIUM 0.5MG/ALBUTEROL 2.5MG INH SOL UD 3ML (DUONEB) NEB PRN (21:10)
[2022-11-05] MEDS ORDERED: ONDANSETRON 4MG 2ML VIAL IV PRN (21:10)
[2022-11-05] MEDS ORDERED: METH5TA PO (21:17)
[2022-11-05] MEDS ORDERED: MAGN250T11 PO (21:17)
[2022-11-05] MEDS ORDERED: HOME MED LIST COMPLETE! XX SCH (21:20)
[2022-11-05] MEDS ORDERED: ALBUTEROL 90 MCG/ACT 8GM HFA INHALER INH PRN (21:20)
[2022-11-05] MEDS ORDERED: PILL CUTTER 1 EACH XX PRN (21:30)
[2022-11-05] MEDS: PREGABALIN 75 MG CAP(LYRICA) PO SCH (21:54)
[2022-11-05] MEDS: METHADONE 5MG TAB PO SCH (21:54)
[2022-11-05] MEDS: KETOROLAC 30 MG/ML 1ML VIAL IV PRN (22:36)
[2022-11-05] MEDS: MORPHINE 2 MG/ML 1ML VIAL IV PRN (22:49)
[2022-11-05 23:17] VITALS: BP 108/66; TEMP 97.7; O2SAT 84
[2022-11-05] MEDS: NS 1,000 ML IV SCH (23:31)
[2022-11-06] MEDS: MORPHINE 2 MG/ML 1ML VIAL IV PRN ×4 (03:21→21:24)
[2022-11-06] MEDS ORDERED: LEVOTHYROXINE 100MCG TABLET (0.1MG) PO SCH (06:00)
[2022-11-06 06:27] VITALS: BP 98/53; TEMP 97.9; O2SAT 95
[2022-11-06 06:57] LABS: MEAN CORPUSCULAR HGB CONC 32.1 g/dl (32.0-36.5); MEAN CORPUSCULAR VOLUME 93.5 fl (80.0-96.0); PLATELET COUNT, AUTOMATED 249 10^3/uL (150-450); RED BLOOD COUNT 3.53 10^6/uL (4.00-5.40); WHITE BLOOD COUNT 6.9 10^3/uL (4.0-10.0)
[2022-11-06 06:58] LABS: HEMOGLOBIN 10.6 g/dl (12.0-15.5)
[2022-11-06 07:13] LABS: BLOOD UREA NITROGEN 9 MG/DL (9-23); CALCIUM LEVEL 9.2 MG/DL (8.3-10.6); CARBON DIOXIDE LEVEL 29 MMOL/L (20-31); CHLORIDE LEVEL 104 MMOL/L (98-107); CREATININE FOR GFR 0.59 MG/DL (0.55-1.30); GLOMERULAR FILTRATION RATE > 60.0 (>45); GLUCOSE, FASTING 93 MG/DL (74-106); MAGNESIUM LEVEL 1.8 MG/DL (1.8-2.4); POTASSIUM SERUM 4.4 MMOL/L (3.5-5.1); SODIUM LEVEL 138 MMOL/L (136-145)
[2022-11-06] MEDS: ADVAIR HFA 115/21MCG INHALER INH SCH ×2 (07:24→19:47)
[2022-11-06] MEDS ORDERED: TIOTROPIUM INHALER/CAPSULE (SPIRIVA) INH SCH (08:00)
[2022-11-06] MEDS: PREGABALIN 75 MG CAP(LYRICA) PO SCH ×2 (08:44→21:00)
[2022-11-06] MEDS ORDERED: LORATADINE 10 MG TAB PO SCH (09:00)
[2022-11-06] MEDS ORDERED: THIAMINE 100 MG TAB PO SCH (09:00)
[2022-11-06] MEDS ORDERED: MAG SULF 1GM/100ML (MAG RUN) 1 GM in IV 1 EA IV ONE (09:00)
[2022-11-06] MEDS ORDERED: OMEPRAZOLE 20MG CAP PO SCH (09:00)
[2022-11-06] MEDS ORDERED: FOLIC ACID 1MG TAB PO SCH (09:00)
[2022-11-06 09:24] VITALS: BP 110/68
[2022-11-06 10:47] VITALS: O2SAT 89
[2022-11-06] MEDS: KETOROLAC 30 MG/ML 1ML VIAL IV PRN ×2 (11:22→19:34)
[2022-11-06] MEDS: NS 1,000 ML IV SCH (12:53)
[2022-11-06 14:00] VITALS: BP 112/56; TEMP 98.1; O2SAT 93
[2022-11-06] MEDS ORDERED: MIDAZOLAM INJ 2MG/2ML VIAL As Ordered ONE (18:13)
[2022-11-06] MEDS ORDERED: fentaNYL 100 MCG/2 ML INJECTION As Ordered ONE (18:13)
[2022-11-06] MEDS ORDERED: LIDOCAINE 2% 100MG/5ML SDV (FOR ANES.) As Ordered ONE (18:13)
[2022-11-06] MEDS ORDERED: propofoL 200 MG/20 ML VIAL As Ordered ONE (18:13)
[2022-11-06] MEDS ORDERED: ceFAZolin 1GM VIAL As Ordered ONE (18:16)
[2022-11-06] MEDS ORDERED: SALIVA SUBSTITUTE(MOUTHKOTE) BTL MT PRN (19:10)
[2022-11-06] MEDS: METHADONE 5MG TAB PO SCH (21:00)
== END 2022-11-06 22:00 | disposition short-term general hospital (02) | DRG 343 ==
LOC: EDBD 17:55 → M ED 17:55 → M ED INP 21:06 → M MS5PR 23:22
PROVIDERS: ADMIT Internal Medicine; ATTEND Internal Medicine
DX: M84.551A Pathological fracture in neoplastic disease, right femur, initial encounter for fracture (principal); C79.51 Secondary malignant neoplasm of bone; J44.9 Chronic obstructive pulmonary disease, unspecified; E03.9 Hypothyroidism, unspecified; R00.0 Tachycardia, unspecified; Z92.21 Personal history of antineoplastic chemotherapy; F17.200 Nicotine dependence, unspecified, uncomplicated; K21.9 Gastro-esophageal reflux disease without esophagitis; Z79.890 Hormone replacement therapy; Z79.899 Other long term (current) drug therapy; Z85.118 Personal history of other malignant neoplasm of bronchus and lung

== ENCOUNTER → 2022-12-23 | Outpatient (REF) | payer OTHER ==
[~2022-12-23] MED LIST changes: +MAGN250T11 PO; +MORP15TA2 PO
== END ==
LOC: M SFHCADAM 12:27
PROVIDERS: ATTEND Physician Assistant
DX: J06.9 Acute upper respiratory infection, unspecified (principal)

== ENCOUNTER → 2023-01-06 | Outpatient (CLI) | payer OTHER ==
[~2023-01-06] MED LIST changes: +ADV250INH; +CYCL5TAB PO; +POTA-298
== END ==
LOC: M PAL 08:35
PROVIDERS: ATTEND Nurse Practitioner Adult Health
DX: C34.90 Malignant neoplasm of unspecified part of unspecified bronchus or lung (principal); Z92.21 Personal history of antineoplastic chemotherapy; Z51.5 Encounter for palliative care; G89.3 Neoplasm related pain (acute) (chronic); G62.0 Drug-induced polyneuropathy; F17.210 Nicotine dependence, cigarettes, uncomplicated; R53.83 Other fatigue; R53.1 Weakness; R26.9 Unspecified abnormalities of gait and mobility; Z79.1 Long term (current) use of non-steroidal anti-inflammatories (NSAID); Z79.891 Long term (current) use of opiate analgesic; Z79.899 Other long term (current) drug therapy; Z80.3 Family history of malignant neoplasm of breast; Z80.1 Family history of malignant neoplasm of trachea, bronchus and lung; Z91.040 Latex allergy status; Z79.890 Hormone replacement therapy; Z79.51 Long term (current) use of inhaled steroids

== ENCOUNTER → 2023-03-17 | Outpatient (REF) | payer OTHER ==
[2023-03-17 12:37] LABS: BASO % 0.4 % (0.0-1.0); EOS # 0.2 10^3/uL (0.0-0.5); HEMATOCRIT 42.5 % (36.0-47.0); HEMOGLOBIN 13.8 g/dl (12.0-15.5); LYMPH # 2.2 10^3/uL (1.5-5.0); LYMPH % 26.6 % (24.0-44.0); MEAN CORPUSCULAR HGB CONC 32.5 g/dl (32.0-36.5); MEAN CORPUSCULAR VOLUME 89.3 fl (80.0-96.0); MONO # 0.6 10^3/uL (0.0-0.8); NEUTROPHILS # 5.3 10^3/uL (1.5-8.5); NEUTROPHILS % 63.9 % (36.0-66.0); PLATELET COUNT, AUTOMATED 367 10^3/uL (150-450); RED BLOOD COUNT 4.76 10^6/uL (4.00-5.40); WHITE BLOOD COUNT 8.3 10^3/uL (4.0-10.0)
[2023-03-17 13:19] LABS: ALKALINE PHOSPHATASE 108 U/L (46-116); ALT/SGPT 12 U/L (7.0-40); AST/SGOT < 8 U/L (<34); BILIRUBIN,TOTAL 0.4 MG/DL (0.3-1.2); BLOOD UREA NITROGEN 17 MG/DL (9-23); CALCIUM LEVEL 9.7 MG/DL (8.3-10.6); CARBON DIOXIDE LEVEL 31 MMOL/L (20-31); CHLORIDE LEVEL 99 MMOL/L (98-107); CREATININE FOR GFR 0.48 MG/DL (0.55-1.30); FREE T4 1.32 NG/DL (0.89-1.76); GLOMERULAR FILTRATION RATE > 60.0 (>45); GLUCOSE, FASTING 124 MG/DL (74-106); MAGNESIUM LEVEL 1.6 MG/DL (1.8-2.4); POTASSIUM SERUM 4.6 MMOL/L (3.5-5.1); SODIUM LEVEL 137 MMOL/L (136-145); THYROID STIMULATING HORMONE 2.193 uIU/ML (0.55-4.78); TOTAL PROTEIN 6.6 G/DL (5.7-8.2); VITAMIN B12 LEVEL 515 PG/ML (211-911)
[2023-03-17 13:21] LABS: FOLATE > 24.0 NG/ML (>5.4)
== END ==
LOC: M SFHCADAM 11:12
PROVIDERS: ATTEND Physician Assistant Medical
DX: E78.2 Mixed hyperlipidemia (principal); G62.9 Polyneuropathy, unspecified; E03.9 Hypothyroidism, unspecified; F32.1 Major depressive disorder, single episode, moderate; F17.218 Nicotine dependence, cigarettes, with other nicotine-induced disorders; W19.XXXS Unspecified fall, sequela; K21.9 Gastro-esophageal reflux disease without esophagitis; X58.XXXS Exposure to other specified factors, sequela

== ENCOUNTER → 2023-05-03 | Outpatient (CLI) | payer OTHER ==
[~2023-05-03] VITALS: Ht 162.6 cm; Wt 38.1 kg
[~2023-05-03] MED LIST changes: +CYMB1CAP4 PO; +CYMB1CAP5 PO
[2023-05-03 11:08] VITALS: BP 119/78; O2SAT 94
== END ==
LOC: M PAL 10:57
PROVIDERS: ATTEND Nurse Practitioner Adult Health
DX: C34.90 Malignant neoplasm of unspecified part of unspecified bronchus or lung (principal); Z92.21 Personal history of antineoplastic chemotherapy; Z51.5 Encounter for palliative care; G89.3 Neoplasm related pain (acute) (chronic); G62.9 Polyneuropathy, unspecified; F17.210 Nicotine dependence, cigarettes, uncomplicated; R53.83 Other fatigue; R63.0 Anorexia; R64 Cachexia; R11.0 Nausea; R29.6 Repeated falls; Z79.1 Long term (current) use of non-steroidal anti-inflammatories (NSAID); Z79.51 Long term (current) use of inhaled steroids; Z79.891 Long term (current) use of opiate analgesic; Z79.890 Hormone replacement therapy; Z79.899 Other long term (current) drug therapy; Z80.1 Family history of malignant neoplasm of trachea, bronchus and lung; Z80.3 Family history of malignant neoplasm of breast; Z91.040 Latex allergy status; Z98.51 Tubal ligation status

== ENCOUNTER → 2023-05-23 | Outpatient (CLI) | payer OTHER ==
[~2023-05-23] MED LIST changes: -ADV250INH; +ISOVUE-370 76% 100ML VIAL As Ordered ONE; -POTA-298; +POTA-298 PO
== END ==
LOC: M RAD 14:54
PROVIDERS: ATTEND Internal Medicine Medical Oncology
DX: C34.90 Malignant neoplasm of unspecified part of unspecified bronchus or lung (principal)

== ENCOUNTER → 2023-07-01 | Outpatient (CLI) | payer OTHER ==
[~2023-07-01] MED LIST changes: -ISOVUE-370 76% 100ML VIAL As Ordered ONE
== END ==
LOC: M RAD 12:47
PROVIDERS: ATTEND Physician Assistant
DX: M79.89 Other specified soft tissue disorders (principal)

== ENCOUNTER → 2023-07-13 | Outpatient (CLI) | payer OTHER | LOC: M RAD 09:58 | PROVIDERS: ATTEND Specialist | DX: N95.0 Postmenopausal bleeding (principal) ==

== ENCOUNTER → 2023-07-15 | Outpatient (CLI) | payer OTHER | LOC: M SOG 08:00 | PROVIDERS: ATTEND Orthopaedic Surgery | DX: M25.561 Pain in right knee (principal); M25.562 Pain in left knee ==

== ENCOUNTER 2023-07-22 10:24 | Observation (INO) | payer MEDICAID ==
[~2023-07-22] VITALS: Ht 162.6 cm; Wt 38.3 kg
[~2023-07-22 10:24] MED LIST changes: +COLA100C5 PO; +DULO1CAP5 PO; +IBUP200C25 PO; +MAGN250T6 PO
[2023-07-22] MEDS ORDERED: HYDROmorphone HCL 2MG/ML 1ML VIAL As Ordered ONE (12:15)
[2023-07-22] MEDS ORDERED: fentaNYL 100 MCG/2 ML INJECTION As Ordered ONE (12:15)
[2023-07-22] MEDS ORDERED: LIDOCAINE 2% 100MG/5ML SDV (FOR ANES.) As Ordered ONE (12:16)
[2023-07-22] MEDS ORDERED: propofoL 200 MG/20 ML VIAL As Ordered ONE (12:16)
[2023-07-22] MEDS ORDERED: ACETAMINOPHEN 1000MG 100ML IV BAG As Ordered ONE (12:16)
[2023-07-22] MEDS ORDERED: ROCURONIUM BROMIDE 50MG/5ML VIAL As Ordered ONE (12:16)
[2023-07-22] MEDS ORDERED: ONDANSETRON 4MG 2ML VIAL As Ordered ONE (12:16)
[2023-07-22] MEDS ORDERED: KETOROLAC 60MG 2ML VIAL As Ordered ONE (12:16)
[2023-07-22] MEDS ORDERED: MIDAZOLAM INJ 2MG/2ML VIAL As Ordered ONE (12:16)
[2023-07-22] MEDS: ceFAZolin 2 GM/D5W 50 ML IV BAG As Ordered ONE (13:10)
[2023-07-22] MEDS ORDERED: SUGAMMADEX SODIUM 500 MG/5 ML VIAL (BRIDION) As Ordered ONE (13:31)
[2023-07-22] MEDS ORDERED: MORPHINE 2 MG/ML 1ML VIAL IV PRN ×2 (14:30→14:35)
[2023-07-22] MEDS ORDERED: oxyCODONE 5MG TAB PO PRN ×2 (14:30)
[2023-07-22] MEDS ORDERED: ACETAMINOPHEN TAB 650MG DOSE (2X325MG) PO PRN (14:30)
[2023-07-22] MEDS ORDERED: ONDANSETRON 4MG 2ML VIAL IV PRN ×2 (14:30→14:35)
[2023-07-22] MEDS ORDERED: ALBUTEROL 90 MCG/ACT 8GM HFA INHALER INH PRN (14:40)
[2023-07-22] MEDS ORDERED: ASPI81TAEC PO (14:50)
[2023-07-22] MEDS: fentaNYL 100 MCG/2 ML INJECTION IV PRN (14:53)
[2023-07-22] MEDS: oxyCODONE 5MG TAB PO PRN (15:07)
[2023-07-22 15:30] VITALS: BP 127/81; TEMP 97.8; O2SAT 95
[2023-07-22] MEDS ORDERED: ADVAIR HFA 115/21MCG INHALER INH SCH (20:00)
[2023-07-22] MEDS ORDERED: SENOKOT S TAB PO SCH (21:00)
[2023-07-22] MEDS ORDERED: ceFAZolin SOD 2 GM in IV 1 EA IV SCH (21:00)
[2023-07-23] MEDS ORDERED: LEVOTHYROXINE 100MCG TABLET (0.1MG) PO SCH (06:00)
[2023-07-23] MEDS ORDERED: ASPIRIN 81MG ENTERIC TABLET PO SCH (09:00)
[2023-07-23] MEDS ORDERED: FOLIC ACID 1MG TAB PO SCH (09:00)
[2023-07-23] MEDS ORDERED: DULoxetine 30MG CAPSULE (CYMBALTA) PO SCH (09:00)
[2023-07-23] MEDS ORDERED: THIAMINE 100 MG TAB PO SCH (09:00)
== END 2023-07-22 15:55 | disposition home or self-care (01) ==
LOC: M SDC 10:24 → M MS5PR 10:25 → M ED INP 07-25 15:32
PROVIDERS: ADMIT Orthopaedic Surgery; ATTEND Orthopaedic Surgery
DX: S82.142A Displaced bicondylar fracture of left tibia, initial encounter for closed fracture (principal); X58.XXXA Exposure to other specified factors, initial encounter; Y99.8 Other external cause status; I20.9 Angina pectoris, unspecified; Z91.040 Latex allergy status; Z79.899 Other long term (current) drug therapy; F17.290 Nicotine dependence, other tobacco product, uncomplicated
CPT/HCPCS: 20902; 29856; 76000; C1713; J0131; J0665; J0690; J1100; J1170; J1885; J2250; J2405; J3010

== ENCOUNTER → 2023-07-27 | Outpatient (CLI) | payer MEDICAID ==
[~2023-07-27] MED LIST changes: +ASPI81TAEC PO
== END ==
LOC: M SOG 07:52
PROVIDERS: ATTEND Orthopaedic Surgery
DX: S82.142A Displaced bicondylar fracture of left tibia, initial encounter for closed fracture (principal); W18.30XA Fall on same level, unspecified, initial encounter; Y92.009 Unspecified place in unspecified non-institutional (private) residence as the place of occurrence of the external cause

== ENCOUNTER → 2023-08-17 | Outpatient (REF) | payer MEDICAID ==
[2023-08-17 18:47] LABS: CHOLESTEROL RISK RATIO 3.22 (<5); HDL CHOLESTEROL 50.8 MG/DL (>40); LDL CHOLESTEROL 80.8 MG/DL (<100); NON-HDL-C 113.2 MG/DL
[2023-08-17 18:48] LABS: THYROID STIMULATING HORMONE 1.59 uIU/ML (0.55-4.78); TOTAL 25(OH) VITAMIN D 34.8 NG/ML (20.0-100.0)
[2023-08-17 18:49] LABS: FREE T4 1.34 NG/DL (0.89-1.76)
== END ==
LOC: M SFHCADAM 11:58
PROVIDERS: ATTEND Physician Assistant Medical
DX: E78.2 Mixed hyperlipidemia (principal); F32.1 Major depressive disorder, single episode, moderate; E06.3 Autoimmune thyroiditis

== ENCOUNTER → 2023-08-31 | Outpatient (CLI) | payer MEDICAID | LOC: M SOG 09:10 | PROVIDERS: ATTEND Orthopaedic Surgery | DX: S82.142A Displaced bicondylar fracture of left tibia, initial encounter for closed fracture (principal); W18.30XA Fall on same level, unspecified, initial encounter; Y92.009 Unspecified place in unspecified non-institutional (private) residence as the place of occurrence of the external cause ==

== ENCOUNTER → 2023-09-08 | Outpatient (CLI) | payer MEDICAID | LOC: M WHC 11:48 | PROVIDERS: ATTEND Physician Assistant Medical | DX: M81.0 Age-related osteoporosis without current pathological fracture (principal) ==

== ENCOUNTER → 2023-12-23 | Outpatient (CLI) | payer MEDICAID ==
[~2023-12-23] MED LIST changes: +GASTROGRAFIN SOLUTION 30ML As Ordered ONE; +IBUP200T46 PO; +ISOVUE-370 76% 100ML VIAL As Ordered ONE; +ONDA-284 PO; -ONDA8TAB8 PO
== END ==
LOC: M RAD 06:51
PROVIDERS: ATTEND Internal Medicine Medical Oncology
DX: C34.90 Malignant neoplasm of unspecified part of unspecified bronchus or lung (principal); R91.8 Other nonspecific abnormal finding of lung field; K55.1 Chronic vascular disorders of intestine
CPT/HCPCS: 71260; 74177; Q9963; Q9967

== ENCOUNTER → 2024-01-12 | Outpatient (CLI) | payer MEDICAID ==
[~2024-01-12] MED LIST changes: -GASTROGRAFIN SOLUTION 30ML As Ordered ONE
== END ==
LOC: M RAD 07:37
PROVIDERS: ATTEND Internal Medicine Hematology & Oncology
DX: R59.0 Localized enlarged lymph nodes (principal); I70.0 Atherosclerosis of aorta
CPT/HCPCS: 74174; Q9967

== ENCOUNTER → 2024-02-02 | Outpatient (CLI) | payer MEDICAID ==
[~2024-02-02] MED LIST changes: +CYMB60CA4 PO; +GABA-1172 PO; -GABA-282 PO; -ISOVUE-370 76% 100ML VIAL As Ordered ONE
== END ==
LOC: M PAL 10:04
PROVIDERS: ATTEND Nurse Practitioner Adult Health
DX: G62.9 Polyneuropathy, unspecified (principal); R53.83 Other fatigue; R63.0 Anorexia; R64 Cachexia; M79.641 Pain in right hand; M79.642 Pain in left hand; Z85.118 Personal history of other malignant neoplasm of bronchus and lung; R29.6 Repeated falls; F17.210 Nicotine dependence, cigarettes, uncomplicated; Z51.5 Encounter for palliative care; Z79.82 Long term (current) use of aspirin; Z79.890 Hormone replacement therapy; Z79.899 Other long term (current) drug therapy; Z79.891 Long term (current) use of opiate analgesic; Z80.1 Family history of malignant neoplasm of trachea, bronchus and lung; Z80.3 Family history of malignant neoplasm of breast; Z91.040 Latex allergy status; Z92.21 Personal history of antineoplastic chemotherapy; Z98.51 Tubal ligation status

== ENCOUNTER → 2024-03-12 | Outpatient (REF) | payer MEDICAID ==
[2024-03-12 17:56] LABS: FREE T4 1.33 NG/DL (0.89-1.76)
[2024-03-12 17:57] LABS: THYROID STIMULATING HORMONE 13.805 uIU/ML (0.55-4.78)
== END ==
LOC: M SFHCADAM 13:42
PROVIDERS: ATTEND Physician Assistant Medical
DX: E06.3 Autoimmune thyroiditis (principal)

== ENCOUNTER → 2024-03-15 | Outpatient (CLI) | payer MEDICAID ==
[~2024-03-15] MED LIST changes: -CYCL5TAB PO; +CYCL5TAB4 PO
== END ==
LOC: M PAL 13:17
PROVIDERS: ATTEND Nurse Practitioner Adult Health
DX: G62.9 Polyneuropathy, unspecified (principal); G89.3 Neoplasm related pain (acute) (chronic); R05.9 Cough, unspecified; R53.83 Other fatigue; R63.0 Anorexia; R64 Cachexia; M79.641 Pain in right hand; M79.642 Pain in left hand; Z85.118 Personal history of other malignant neoplasm of bronchus and lung; R29.6 Repeated falls; F17.210 Nicotine dependence, cigarettes, uncomplicated; Z51.5 Encounter for palliative care; Z79.1 Long term (current) use of non-steroidal anti-inflammatories (NSAID); Z79.51 Long term (current) use of inhaled steroids; Z79.890 Hormone replacement therapy; Z79.891 Long term (current) use of opiate analgesic; Z79.899 Other long term (current) drug therapy; Z80.1 Family history of malignant neoplasm of trachea, bronchus and lung; Z80.3 Family history of malignant neoplasm of breast; Z91.040 Latex allergy status; Z92.21 Personal history of antineoplastic chemotherapy; Z98.51 Tubal ligation status

== ENCOUNTER → 2024-04-25 | Outpatient (CLI) | payer MEDICAID ==
[~2024-04-25] MED LIST changes: -ADV100INH INH; -ADV250INH INH; +ADVA1AER8 INH; +ADVA1AER9 INH
[2024-04-25 15:38] LABS: BLOOD UREA NITROGEN 6 MG/DL (9-23); CALCIUM LEVEL 9.2 MG/DL (8.3-10.6); CARBON DIOXIDE LEVEL 32 MMOL/L (20-31); CHLORIDE LEVEL 100 MMOL/L (98-107); GLOMERULAR FILTRATION RATE > 60.0 (>45); GLUCOSE, FASTING 96 MG/DL (74-106); POTASSIUM SERUM 4.3 MMOL/L (3.5-5.1); SODIUM LEVEL 136 MMOL/L (136-145)
== END ==
LOC: M LAB 13:55
PROVIDERS: ATTEND Physician Assistant Medical
DX: M81.0 Age-related osteoporosis without current pathological fracture (principal)

== ENCOUNTER → 2024-04-25 | Outpatient (CLI) | payer MEDICAID ==
[2024-04-25 15:10] LABS: BASO # 0.1 10^3/uL (0.0-0.2); BASO % 0.8 % (0.0-1.0); EOS # 0.4 10^3/uL (0.0-0.5); EOS % 4.6 % (0.0-3.0); HEMATOCRIT 42.5 % (36.0-47.0); HEMOGLOBIN 13.9 g/dl (12.0-15.5); LYMPH # 2.6 10^3/uL (1.5-5.0); LYMPH % 29.9 % (24.0-44.0); MEAN CORPUSCULAR HGB CONC 32.7 g/dl (32.0-36.5); MEAN CORPUSCULAR VOLUME 88.5 fl (80.0-96.0); MONO # 0.6 10^3/uL (0.0-0.8); MONO % 7.3 % (2.0-8.0); NEUTROPHILS # 4.9 10^3/uL (1.5-8.5); NEUTROPHILS % 57.2 % (36.0-66.0); PLATELET COUNT, AUTOMATED 335 10^3/uL (150-450); WHITE BLOOD COUNT 8.6 10^3/uL (4.0-10.0)
[2024-04-25 15:41] LABS: ALBUMIN 3.9 G/DL (3.2-5.2); ALKALINE PHOSPHATASE 83 U/L (35-104); ALT/SGPT 11 U/L (7.0-40); AST/SGOT 13 U/L (<34); BILIRUBIN,TOTAL 0.3 MG/DL (0.3-1.2); BLOOD UREA NITROGEN 6 MG/DL (9-23); CALCIUM LEVEL 9.4 MG/DL (8.3-10.6); CARBON DIOXIDE LEVEL 32 MMOL/L (20-31); CHLORIDE LEVEL 98 MMOL/L (98-107); CREATININE FOR GFR 0.62 MG/DL (0.55-1.30); GLOMERULAR FILTRATION RATE > 60.0 (>45); GLUCOSE, FASTING 79 MG/DL (74-106); POTASSIUM SERUM 4.4 MMOL/L (3.5-5.1); SODIUM LEVEL 136 MMOL/L (136-145); TOTAL PROTEIN 6.5 G/DL (5.7-8.2)
== END ==
LOC: M LAB 13:36
PROVIDERS: ATTEND Internal Medicine Medical Oncology
DX: C34.90 Malignant neoplasm of unspecified part of unspecified bronchus or lung (principal)

== ENCOUNTER → 2024-04-30 | Outpatient (CLI) | payer MEDICAID | LOC: M SOG 07:55 | PROVIDERS: ATTEND Orthopaedic Surgery | DX: S82.142A Displaced bicondylar fracture of left tibia, initial encounter for closed fracture (principal) ==

== ENCOUNTER 2024-05-02 12:58 | Outpatient (CLI) | payer MEDICAID ==
[~2024-05-02] VITALS: Ht 162.6 cm; Wt 40.5 kg
[~2024-05-02 12:58] MED LIST changes: +ZOLEDRONIC ACID 5 MG in IV 1 EA IV ONE
[2024-05-02 13:25] VITALS: BP 137/76; O2SAT 95
[2024-05-02 13:35] VITALS: BP 147/78; O2SAT 98
[2024-05-02] MEDS: ZOLEDRONIC ACID 5 MG in IV 1 EA IV ONE (13:49)
== END 2024-05-02 14:35 ==
LOC: M INFU 12:58
PROVIDERS: ATTEND Nurse Practitioner Family
DX: M81.0 Age-related osteoporosis without current pathological fracture (principal); Z91.040 Latex allergy status
CPT/HCPCS: 96365; J3489

== ENCOUNTER → 2024-05-02 | Outpatient (CLI) | payer MEDICAID | LOC: M SOG 07:51 | PROVIDERS: ATTEND Orthopaedic Surgery | DX: S82.142A Displaced bicondylar fracture of left tibia, initial encounter for closed fracture (principal); W18.30XA Fall on same level, unspecified, initial encounter; Y92.009 Unspecified place in unspecified non-institutional (private) residence as the place of occurrence of the external cause ==

== ENCOUNTER → 2024-05-21 | Outpatient (CLI) | payer MEDICAID ==
[~2024-05-21] MED LIST changes: -ZOLEDRONIC ACID 5 MG in IV 1 EA IV ONE
== END ==
LOC: M SOG 07:55
PROVIDERS: ATTEND Orthopaedic Surgery
DX: M25.562 Pain in left knee (principal)

== ENCOUNTER → 2024-05-24 | Outpatient (CLI) | payer MEDICAID | LOC: M SOG 07:50 | PROVIDERS: ATTEND Orthopaedic Surgery | DX: M25.562 Pain in left knee (principal) ==

== ENCOUNTER → 2024-06-20 | Outpatient (CLI) | payer MEDICAID | LOC: M WHC 08:55 | PROVIDERS: ATTEND Internal Medicine Medical Oncology | DX: Z12.31 Encounter for screening mammogram for malignant neoplasm of breast (principal); Z80.3 Family history of malignant neoplasm of breast ==

== ENCOUNTER → 2024-06-24 | Outpatient (CLI) | payer MEDICAID ==
[2024-06-24 10:56] LABS: FREE T4 0.96 NG/DL (0.89-1.76); THYROID STIMULATING HORMONE 41.449 uIU/ML (0.55-4.78)
== END ==
LOC: M LAB 09:52
PROVIDERS: ATTEND Physician Assistant Medical
DX: E06.3 Autoimmune thyroiditis (principal)

== ENCOUNTER → 2024-06-27 | Outpatient (CLI) | payer MEDICAID | LOC: M SOG 07:54 | PROVIDERS: ATTEND Orthopaedic Surgery | DX: M25.562 Pain in left knee (principal) ==

== ENCOUNTER → 2024-07-03 | Outpatient (CLI) | payer MEDICAID ==
[~2024-07-03] VITALS: Ht 162.6 cm; Wt 42.5 kg
[~2024-07-03] MED LIST changes: +MELO15TA28 PO
[2024-07-03 13:31] VITALS: BP 120/70; O2SAT 96
== END ==
LOC: M PAL 13:01
PROVIDERS: ATTEND Family Medicine
DX: Z08 Encounter for follow-up examination after completed treatment for malignant neoplasm (principal); R52 Pain, unspecified; Z85.118 Personal history of other malignant neoplasm of bronchus and lung; Z92.21 Personal history of antineoplastic chemotherapy; Z79.891 Long term (current) use of opiate analgesic; Z79.890 Hormone replacement therapy; Z91.040 Latex allergy status; Z79.1 Long term (current) use of non-steroidal anti-inflammatories (NSAID)

== ENCOUNTER → 2024-07-11 | Outpatient (CLI) | payer MEDICAID | LOC: M SOG 07:52 | PROVIDERS: ATTEND Orthopaedic Surgery | DX: M25.562 Pain in left knee (principal) ==

== ENCOUNTER → 2024-07-12 | Outpatient (CLI) | payer MEDICAID ==
[2024-07-12 19:36] LABS: ALKALINE PHOSPHATASE 61 U/L (35-104); ALT/SGPT < 9 U/L (7.0-40); AST/SGOT 11 U/L (<34); BILIRUBIN,TOTAL 0.5 MG/DL (0.3-1.2); BLOOD UREA NITROGEN 10 MG/DL (9-23); CALCIUM LEVEL 8.8 MG/DL (8.3-10.6); CARBON DIOXIDE LEVEL 29 MMOL/L (20-31); CHLORIDE LEVEL 102 MMOL/L (98-107); CREATININE FOR GFR 0.53 MG/DL (0.55-1.30); GLOMERULAR FILTRATION RATE > 60.0 (>45); GLUCOSE, FASTING 73 MG/DL (74-106); POTASSIUM SERUM 4.5 MMOL/L (3.5-5.1); SODIUM LEVEL 137 MMOL/L (136-145); TOTAL PROTEIN 6.9 G/DL (5.7-8.2)
== END ==
LOC: M PLALAB 14:10
PROVIDERS: ATTEND Internal Medicine Medical Oncology
DX: C34.90 Malignant neoplasm of unspecified part of unspecified bronchus or lung (principal)

== ENCOUNTER → 2024-07-12 | Outpatient (CLI) | payer MEDICAID ==
[2024-07-12 19:39] LABS: BLOOD UREA NITROGEN 10 MG/DL (9-23); CALCIUM LEVEL 8.7 MG/DL (8.3-10.6); CARBON DIOXIDE LEVEL 29 MMOL/L (20-31); CHLORIDE LEVEL 101 MMOL/L (98-107); CREATININE FOR GFR 0.52 MG/DL (0.55-1.30); GLOMERULAR FILTRATION RATE > 60.0 (>45); GLUCOSE, FASTING 74 MG/DL (74-106); POTASSIUM SERUM 4.3 MMOL/L (3.5-5.1); SODIUM LEVEL 137 MMOL/L (136-145)
== END ==
LOC: M PLALAB 14:08
PROVIDERS: ATTEND Internal Medicine Endocrinology, Diabetes & Metabolism
DX: M81.0 Age-related osteoporosis without current pathological fracture (principal)

== ENCOUNTER → 2024-07-12 | Outpatient (CLI) | payer MEDICAID ==
[~2024-07-12] MED LIST changes: +ISOVUE-370 76% 100ML VIAL ONE
== END ==
LOC: M PLAIMG 13:30
PROVIDERS: ATTEND Internal Medicine Medical Oncology
DX: C34.90 Malignant neoplasm of unspecified part of unspecified bronchus or lung (principal)

== ENCOUNTER → 2024-07-13 | Outpatient (CLI) | payer MEDICAID ==
[~2024-07-13] MED LIST changes: -ISOVUE-370 76% 100ML VIAL ONE
== END ==
LOC: M RAD 11:30
PROVIDERS: ATTEND Physician Assistant Medical
DX: R93.89 Abnormal findings on diagnostic imaging of other specified body structures (principal)

== ENCOUNTER → 2024-07-25 | Outpatient (CLI) | payer MEDICAID | LOC: M SOG 07:56 | PROVIDERS: ATTEND Orthopaedic Surgery | DX: M17.12 Unilateral primary osteoarthritis, left knee (principal) ==

== ENCOUNTER → 2024-08-06 | Outpatient (CLI) | payer MEDICAID | LOC: M PAL 11:57 | PROVIDERS: ATTEND Physician Assistant | DX: C34.90 Malignant neoplasm of unspecified part of unspecified bronchus or lung (principal); Z92.21 Personal history of antineoplastic chemotherapy; Z79.891 Long term (current) use of opiate analgesic; Z79.899 Other long term (current) drug therapy; Z91.040 Latex allergy status ==

== ENCOUNTER → 2024-09-04 | Outpatient (CLI) | payer MEDICAID | LOC: M PAL 08:27 | PROVIDERS: ATTEND Physician Assistant | DX: Z51.5 Encounter for palliative care (principal); R52 Pain, unspecified; Z85.118 Personal history of other malignant neoplasm of bronchus and lung; Z92.21 Personal history of antineoplastic chemotherapy; Z79.891 Long term (current) use of opiate analgesic; Z79.890 Hormone replacement therapy; Z79.899 Other long term (current) drug therapy; Z91.040 Latex allergy status ==

== ENCOUNTER → 2024-09-19 | Outpatient (CLI) | payer MEDICAID ==
[~2024-09-19] MED LIST changes: -DRON2.5C11 PO; +DRON2.5C17 PO; -DRON5CAP13 PO; +DRON5CAP19 PO; -PREG25CA PO; +PREG25CA63 PO; -PREG50CA PO; +PREG50CA87 PO
== END ==
LOC: M RAD 10:19
PROVIDERS: ATTEND Surgery Vascular Surgery
DX: I77.1 Stricture of artery (principal)

== ENCOUNTER → 2024-10-02 | Outpatient (CLI) | payer MEDICAID ==
[2024-10-02 13:49] LABS: FREE T4 1.65 NG/DL (0.89-1.76); THYROID STIMULATING HORMONE 2.741 uIU/ML (0.55-4.78)
== END ==
LOC: M LAB 12:28
PROVIDERS: ATTEND Physician Assistant Medical
DX: E06.3 Autoimmune thyroiditis (principal)

== ENCOUNTER → 2024-10-02 | Outpatient (CLI) | payer MEDICAID ==
[2024-10-02 13:21] LABS: BASO % 0.5 % (0.0-1.0); EOS # 0.3 10^3/uL (0.0-0.5); EOS % 3.9 % (0.0-3.0); HEMOGLOBIN 15.1 g/dl (12.0-15.5); LYMPH # 2.8 10^3/uL (1.5-5.0); LYMPH % 33.7 % (24.0-44.0); MEAN CORPUSCULAR HEMOGLOBIN 29.4 pg (27.0-33.0); MEAN CORPUSCULAR HGB CONC 32.8 g/dl (32.0-36.5); MEAN CORPUSCULAR VOLUME 89.5 fl (80.0-96.0); MONO # 0.5 10^3/uL (0.0-0.8); MONO % 6.4 % (2.0-8.0); NEUTROPHILS # 4.6 10^3/uL (1.5-8.5); NEUTROPHILS % 55.3 % (36.0-66.0); PLATELET COUNT, AUTOMATED 336 10^3/uL (150-450); RED BLOOD COUNT 5.14 10^6/uL (4.00-5.40); WHITE BLOOD COUNT 8.2 10^3/uL (4.0-10.0)
[2024-10-02 13:34] LABS: INR 0.95; PROTHROMBIN TIME 12.9 SECONDS (12.5-14.5)
[2024-10-02 13:47] LABS: C REACTIVE PROTEIN QUANTITATIV < 0.50 MG/DL (<1.0)
[2024-10-02 13:48] LABS: ALBUMIN 4.2 G/DL (3.2-5.2); ALKALINE PHOSPHATASE 74 U/L (35-104); ALT/SGPT 11 U/L (7.0-40); AST/SGOT 11 U/L (<34); BILIRUBIN,TOTAL 0.3 MG/DL (0.3-1.2); BLOOD UREA NITROGEN 11 MG/DL (9-23); CALCIUM LEVEL 9.2 MG/DL (8.3-10.6); CARBON DIOXIDE LEVEL 32 MMOL/L (20-31); CHLORIDE LEVEL 99 MMOL/L (98-107); CREATININE FOR GFR 0.57 MG/DL (0.55-1.30); GLOMERULAR FILTRATION RATE > 90.0 (>45); GLUCOSE, FASTING 93 MG/DL (74-106); POTASSIUM SERUM 4.4 MMOL/L (3.5-5.1); SODIUM LEVEL 137 MMOL/L (136-145); TOTAL PROTEIN 7.1 G/DL (5.7-8.2)
[2024-10-02 13:50] LABS: TOTAL 25(OH) VITAMIN D 30.4 NG/ML (20.0-100.0)
== END ==
LOC: M LAB 12:25
PROVIDERS: ATTEND Orthopaedic Surgery
DX: T84.197A Other mechanical complication of internal fixation device of bone of left lower leg, initial encounter (principal); Y83.1 Surgical operation with implant of artificial internal device as the cause of abnormal reaction of the patient, or of later complication, without mention of misadventure at the time of the procedure

== ENCOUNTER → 2024-10-03 | Outpatient (CLI) | payer MEDICAID | LOC: M PAL 13:16 | PROVIDERS: ATTEND Physician Assistant | DX: Z51.5 Encounter for palliative care (principal); C34.90 Malignant neoplasm of unspecified part of unspecified bronchus or lung; Z92.21 Personal history of antineoplastic chemotherapy; Z79.891 Long term (current) use of opiate analgesic; Z91.040 Latex allergy status; Z79.899 Other long term (current) drug therapy ==

== ENCOUNTER → 2024-11-27 | Outpatient (CLI) | payer MEDICAID ==
[~2024-11-27] MED LIST changes: +ASPI81CH33 PO; +MORP-137 PO; +OXYC10TA12 PO; +PERCOCET PO
== END ==
LOC: M SOG 07:22
PROVIDERS: ATTEND Orthopaedic Surgery
DX: S82.142D Displaced bicondylar fracture of left tibia, subsequent encounter for closed fracture with routine healing (principal); Z47.89 Encounter for other orthopedic aftercare

== ENCOUNTER → 2024-12-11 | Outpatient (CLI) | payer MEDICAID, MEDICARE ==
[~2024-12-11] VITALS: Ht 162.6 cm; Wt 44.5 kg
[2024-12-11 13:51] VITALS: BP 140/78; O2SAT 90
== END ==
LOC: M PAL 13:34
PROVIDERS: ATTEND Physician Assistant
DX: Z51.5 Encounter for palliative care (principal); C34.90 Malignant neoplasm of unspecified part of unspecified bronchus or lung; Z92.21 Personal history of antineoplastic chemotherapy; Z79.891 Long term (current) use of opiate analgesic; Z91.040 Latex allergy status; Z79.82 Long term (current) use of aspirin; Z79.899 Other long term (current) drug therapy

== ENCOUNTER 2024-12-26 12:48 | Outpatient (RCR) | payer MEDICAID, MEDICARE ==
[~2024-12-26 12:48] MED LIST changes: +MORP10SO2 PO
== END 2025-01-13 ==
LOC: M PT 12:48
PROVIDERS: ATTEND Orthopaedic Surgery
DX: S82.122 Displaced fracture of lateral condyle of left tibia (principal)

== ENCOUNTER → 2025-02-19 | Outpatient (CLI) | payer MEDICAID | LOC: M SOG 07:23 | PROVIDERS: ATTEND Orthopaedic Surgery | DX: M25.562 Pain in left knee (principal); Z47.89 Encounter for other orthopedic aftercare ==

== ENCOUNTER → 2025-03-25 | Outpatient (CLI) | payer MEDICARE, MEDICAID | LOC: M RAD 08:44 | PROVIDERS: ATTEND Physician Assistant | DX: K55.1 Chronic vascular disorders of intestine (principal) ==

== ENCOUNTER → 2025-04-18 | Outpatient (CLI) | payer MEDICARE, MEDICAID ==
[2025-04-18 12:35] LABS: BASO # 0.0 10^3/uL (0.0-0.2); BASO % 0.6 % (0.0-1.0); EOS # 0.2 10^3/uL (0.0-0.5); EOS % 3.7 % (0.0-3.0); LYMPH # 2.2 10^3/uL (1.5-5.0); LYMPH % 33.9 % (24.0-44.0); MONO # 0.5 10^3/uL (0.0-0.8); MONO % 7.0 % (2.0-8.0); NEUTROPHILS # 3.6 10^3/uL (1.5-8.5); NEUTROPHILS % 54.5 % (36.0-66.0); PLATELET COUNT, AUTOMATED 357 10^3/uL (150-450)
[2025-04-18 13:06] LABS: ALT/SGPT 10 U/L (7.0-40); AST/SGOT 15 U/L (<34); CALCIUM LEVEL 9.4 MG/DL (8.3-10.6); CARBON DIOXIDE LEVEL 30 MMOL/L (20-31); CHLORIDE LEVEL 99 MMOL/L (98-107); CREATININE FOR GFR 0.60 MG/DL (0.55-1.30); GLOMERULAR FILTRATION RATE > 90.0 (>45); POTASSIUM SERUM 4.2 MMOL/L (3.5-5.1); SODIUM LEVEL 137 MMOL/L (136-145)
== END ==
LOC: M WUC 10:38
PROVIDERS: ATTEND Internal Medicine Medical Oncology
DX: C34.90 Malignant neoplasm of unspecified part of unspecified bronchus or lung (principal)

== ENCOUNTER → 2025-05-14 | Outpatient (CLI) | payer MEDICARE, MEDICAID ==
[~2025-05-14] MED LIST changes: +DIAZ5CON PO; +PROHANCE 279.3MG/ML 15ML VIAL As Ordered ONE
== END ==
LOC: M RAD 08:55
PROVIDERS: ATTEND Internal Medicine Medical Oncology
DX: C34.90 Malignant neoplasm of unspecified part of unspecified bronchus or lung (principal)
CPT/HCPCS: 70553; A9579